=== PATIENT | female | born 1935 | race Caucasian/White ===

== ENCOUNTER 2021-08-16 10:33 | Outpatient (CLI) | payer MEDICARE, MEDICAID, SELFPAY | END 2021-08-16 10:34 | disposition home or self-care (01) | LOC: WOUND 10:33 | PROVIDERS: PCP Family Medicine; Visit Provider Nurse Practitioner Family | DX: L89.892 Pressure ulcer of other site, stage 2 (principal); R26.9 Unspecified abnormalities of gait and mobility; F01.51 Vascular dementia, unspecified severity, with behavioral disturbance | CPT/HCPCS: 97597 ==

== ENCOUNTER 2021-08-30 10:01 | Outpatient (CLI) | payer MEDICARE, MEDICAID, SELFPAY | END 2021-08-30 10:02 | disposition home or self-care (01) | LOC: WOUND 10:01 | PROVIDERS: PCP Family Medicine; Visit Provider Nurse Practitioner Family | DX: L89.894 Pressure ulcer of other site, stage 4 (principal); R26.9 Unspecified abnormalities of gait and mobility; F01.51 Vascular dementia, unspecified severity, with behavioral disturbance | CPT/HCPCS: 97597 ==

== ENCOUNTER 2021-09-06 10:46 | Outpatient (CLI) | payer MEDICARE, MEDICAID, SELFPAY | END 2021-09-06 10:47 | disposition home or self-care (01) | LOC: WOUND 10:46 | PROVIDERS: PCP Family Medicine; Visit Provider Nurse Practitioner Family | DX: L89.894 Pressure ulcer of other site, stage 4 (principal); R26.9 Unspecified abnormalities of gait and mobility | CPT/HCPCS: 99212 ==

== ENCOUNTER 2021-10-05 17:37 | Outpatient (REF) | payer MEDICARE, MEDICAID, SELFPAY ==
[2021-10-05 19:21] LABS: Appearance Urine Clear (Clear); Bilirubin Urine Negative (Negative); Blood Urine Negative (Negative); Color Urine Yellow (Yellow); Glucose Urine Negative (Negative); Ketones Urine Negative (Negative); Leukocyte Esterase Urine Trace (Negative); Nitrite Urine Positive (Negative); Protein Urine Negative (Negative); Specific Gravity Urine 1.025 (1.000-1.030); Urobilinogen Urine 0.2 (0.2-1.0)
[2021-10-05 19:37] LABS: RBC Urine 0-2 (0-2)
[2021-10-05 19:38] LABS: Bacteria Urine Many; Squamous Epithelial Cell Urine Few (None-Few)
== END 2021-10-05 17:38 | disposition home or self-care (01) ==
LOC: NPINS 17:37
PROVIDERS: PCP Family Medicine; Visit Provider Family Medicine
DX: R32 Unspecified urinary incontinence (principal)
CPT/HCPCS: 81001; 87086; 87186

== ENCOUNTER 2021-10-24 17:57 | Outpatient (CLI) | payer MEDICARE, MEDICAID, SELFPAY ==
--- OUTSIDE RECORDS SUMMARY | 2021-11-06 07:05 | XMS_ITS | Clinical Summary ---
:1935 Author Organization [facility] [place] [address] Care Team Providers Name Role Phone Lucille Toney MD Primary Care Provider [phone] Allergies Active Allergy Reactions Severity Noted Date Comments Erythromycin Hives 05/19/2010 Penicillins Hives 05/19/2010 Oxycodone-Acetaminophen 05/19/2010 Dizz y and disoriented Medications Medication Sig Dispensed Refills Start Date End Date Status simvastatin (ZOCOR) 20 Take 1 tablet by 0 01/04/2010 Active mg tablet mouth at bedtime. meloxicam 15 mg tablet Take 1 tablet by 0 05/19/2010 Active mouth once daily. multivitamin (MVI) Take 1 tablet by 0 10/26/2015 Active tablet mouth once daily. donepeziL (ARICEPT) 10 TK 2 TS PO IN THE 0 0 Active mg tablet MORNING amLODIPine (NORVASC) 5 TK 1 T PO D 0 04/21/2019 Active mg tablet medication order Catheter in place 1 Device 0 12/22/2019 Active composerIndications: - please provide Urinary retention catheter care and catheter changes every 4-6 weeks until patient has increased mobility. nitrofurantoin Take 1 capsule by 30 capsule 5 02/16/2020 Active macrocrystaL mouth once daily. (MACRODANTIN) 50 mg capsuleIndications: Urinary tract infection without hematuria, site unspecified betamethasone Apply topically 1 Bottle 0 03/29/2020 Active dipropionate 0.05% to affected (DIPROSONE LOTION area(s) 2 times 0.05%) daily. lotionIndications: Subacute vaginitis Active Problems Problem Noted Date HTN (hypertension) 02/21/2012 Senile osteoporosis 02/21/2012 Hyperlipidemia 02/21/2012 DJD (degenerative joint disease) 02/21/2012 Resolved Problems Problem Noted Date Resolved Date Tibia/fibula fracture 02/21/2012 10/26/2015 Overview: s/p ORIF 02/05/12 Immunizations Name Administration Dates Next Due Influenza, High-dose Inactivated 01/17/2015 Pneumococcal Poly,23-Valent (Pneumovax) 07/14/2009 Pneumococcal conj 13-Valent (Prevnar 13) 12/18/2013 Tdap 01/17/2013 Zoster (Zostavax-ZVL, live) 05/10/2015 Social History Tobacco Use Types Packs/Day Years Used Date Never Smoker Smokeless Tobacco: Never Used Tobacco Cessation: Counseling Given: Yes Alcohol Use Standard Drinks/Week Comments Not Currently 0 (1 standard drink = 0.6 oz pure alcoho l) rarely Sex Assigned at Date Recorded Not on file Obstetrics History Last Filed Vital Signs Vital Sign Reading Time Taken Comments Blood Pressure 111/69 03/22/2020 11:51 AM HAT CONDITIONER Pulse 77 03/22/2020 11:51 AM HAT CONDITIONER Temperature 37.1 ??C (98.8 ??F) 06/30/2018 11:30 AM CDT Respiratory Rate 16 12/22/2019 1:44 PM HAT CONDITIONER Oxygen Saturation 98% 03/22/2020 11:51 AM HAT CONDITIONER Inhaled Oxygen Concentration - - Weight 58.7 kg (129 lb 4.8 oz) 06/30/2018 11:30 AM CDT Height 162.6 cm (5' 4.02) 11/03/2015 12:59 PM CDT Body Mass Index 22.18 11/03/2015 12:59 PM CDT Plan of Treatment Health Maintenance Due Date Last Done Comments COVID-19 vaccine series (#1) 02/24/1936 DEXA/DXA scan for age 65+ 08/23/2000 Medicare Wellness for age 65+ 08/23/2000 Zoster (shingles) series for age 50+ (2 of 07/05/201505/09 3) BMI (ht and wt on same day) for age 18+ 11/02/2016 11/03/19 16, 11/02/2015 Depression screening for age 12+ 11/02/2016 11/03/2015 Influenza for age 65+ 10/18/2021 01/17/2015 Tetanus booster 01/17/2023 01/17/2013 Tdap Completed 01/17/2013 Pneumococcal series for age 65+ Completed 12/18/2013, 06/18 Results Not on filefrom Last 3 Months Insurance Payer Benefit Plan / Subscriber ID Effective Dates Phone Addre ss Type Group MEDICARE - PB MEDICARE PB [id number] 2006-Present ATT N: CLAIMS USE ONLY ONLY [address] [place] [address] Care Teams Worsted Winder Relationship Specialty Start Date End Date Lucille Toney MD PCP - General Family Practice 12/22/191999 [place] [address]
== END 2021-10-24 17:58 | disposition home or self-care (01) ==
PROVIDERS: PCP Family Medicine; Visit Provider Family Medicine
DX: F03.90 Unspecified dementia, unspecified severity, without behavioral disturbance, psychotic disturbance, mood disturbance, and anxiety (principal)
CPT/HCPCS: A0998

== ENCOUNTER 2021-12-02 17:13 | Outpatient (CLI) | payer MEDICARE, MEDICAID, SELFPAY ==
--- OUTSIDE RECORDS SUMMARY | 2021-12-07 10:11 | XMS_ITS | Clinical Summary ---
:1935 Author Organization [facility] [place] [address] Care Team Providers Name Role Phone Lucille Toney MD Primary Care Provider Allergies Active Allergy Reactions Severity Noted Date [...] Comments Blood Pressure 111/69 03/22/2020 11:51 AM COIL WINDER Pulse 77 03/22/2020 11:51 AM COIL WINDER Temperature 37.1 ??C (98.8 ??F) 06/30/2018 11:30 AM CDT Respiratory Rate 16 12/22/2019 1:44 PM COIL WINDER Oxygen Saturation 98% 03/22/2020 11:51 AM COIL WINDER Inhaled Oxygen Concentration - - Weight 58.7 [...] Type Group MEDICARE - PB MEDICARE PB [id number] 2006-Present ATT N: CLAIMS USE ONLY ONLY [address] [place] [address] Care Teams Seafood Preparer Relationship Specialty Start Date End Date Lucille Toney MD PCP - General Family Practice 12/22/191999 [place] [address]
== END 2021-12-02 17:14 | disposition home or self-care (01) ==
LOC: NFLDREF 12-07 10:10
PROVIDERS: PCP Family Medicine; Visit Provider Family Medicine
DX: H10.9 Unspecified conjunctivitis (principal); B96.89 Other specified bacterial agents as the cause of diseases classified elsewhere
CPT/HCPCS: 81003; 81015; 87086; 87186

== ENCOUNTER 2021-12-15 11:51 | Outpatient (CLI) | payer MEDICARE, MEDICAID, SELFPAY ==
--- OUTSIDE RECORDS SUMMARY | 2021-12-15 11:54 | XMS_ITS | Clinical Summary ---
:1935 Author Organization [facility] [place] [address] Care Team Providers Name Role Phone Lucille Toney MD Primary Care Provider [phone] Allergies Active Allergy Reactions Severity Noted [...] Comments Blood Pressure 111/69 03/22/2020 11:51 AM DIET COUNSELOR Pulse 77 03/22/2020 11:51 AM DIET COUNSELOR Temperature 37.1 ??C (98.8 ??F) 06/30/2018 11:30 AM CDT Respiratory Rate 16 12/22/2019 1:44 PM DIET COUNSELOR Oxygen Saturation 98% 03/22/2020 11:51 AM DIET COUNSELOR Inhaled Oxygen Concentration - - Weight 58.7 [...] Type Group MEDICARE - PB MEDICARE PB [id number] 2006-Present ATT N: CLAIMS USE ONLY ONLY [address] [place] [address] Care Teams Pediatric Nephrologist Relationship Specialty Start Date End Date Lucille Toney MD PCP - General Family Practice 12/22/191999 [place] [address]
[2021-12-15 13:05] LABS: Appearance Urine Clear (Clear); Bilirubin Urine Negative (Negative); Color Urine Yellow (Yellow); Glucose Urine Negative (Negative)
[2021-12-15 13:06] LABS: Bacteria Urine Few; Blood Urine Negative (Negative); Ketones Urine Negative (Negative); Leukocyte Esterase Urine Negative (Negative); Nitrite Urine Negative (Negative); Protein Urine Negative (Negative); RBC Urine 0-2 (0-2); Specific Gravity Urine 1.015 (1.000-1.030); Squamous Epithelial Cell Urine Few (None-Few); Urobilinogen Urine 0.2 (0.2-1.0); WBC Urine 0-2 (0-5)
== END 2021-12-15 11:52 | disposition home or self-care (01) ==
PROVIDERS: PCP Family Medicine; Visit Provider Family Medicine
DX: R35.0 Frequency of micturition (principal)
CPT/HCPCS: 81001; 81003; 87086

== ENCOUNTER 2022-05-16 14:31 | Outpatient (CLI) | payer MEDICARE, MEDICAID, SELFPAY | END 2022-05-16 14:32 | disposition home or self-care (01) | LOC: NFLDREF 14:33 | PROVIDERS: PCP Family Medicine; Visit Provider Family Medicine | DX: Z01.818 Encounter for other preprocedural examination (principal); I10 Essential (primary) hypertension | CPT/HCPCS: 80048 ==

== ENCOUNTER 2022-10-29 10:28 | Outpatient (CLI) | payer MEDICARE, MEDICAID, SELFPAY ==
[2022-10-30 12:18] LABS: Appearance Urine Cloudy (Clear); Bilirubin Urine Negative (Negative); Blood Urine Negative (Negative); Color Urine Yellow (Yellow); Glucose Urine Negative (Negative); Ketones Urine Negative (Negative); Leukocyte Esterase Urine Negative (Negative); Nitrite Urine Positive (Negative); Protein Urine Negative (Negative); Specific Gravity Urine 1.025 (1.000-1.030); Urobilinogen Urine 0.2 (0.2-1.0); pH Urine 5.5 (5.0-8.5)
[2022-10-30 12:26] LABS: Bacteria Urine Many; RBC Urine 0-2 (0-2)
== END 2022-10-29 10:29 | disposition home or self-care (01) ==
LOC: NFLDREF 10:30
PROVIDERS: PCP Family Medicine; Visit Provider Family Medicine
DX: N39.0 Urinary tract infection, site not specified (principal)
CPT/HCPCS: 81001; 87086; 87186

== ENCOUNTER 2022-11-20 11:30 | Outpatient (CLI) | payer MEDICARE, MEDICAID, SELFPAY | END 2022-11-20 11:31 | disposition home or self-care (01) | PROVIDERS: PCP Family Medicine; Visit Provider Family Medicine | DX: R74.8 Abnormal levels of other serum enzymes (principal); R23.3 Spontaneous ecchymoses; M81.0 Age-related osteoporosis without current pathological fracture; Z13.21 Encounter for screening for nutritional disorder; R54 Age-related physical debility; E78.5 Hyperlipidemia, unspecified; G30.9 Alzheimer's disease, unspecified; I10 Essential (primary) hypertension | CPT/HCPCS: 80053; 82306 ==

== ENCOUNTER 2022-12-18 13:13 | Outpatient (REF) | payer MEDICARE, MEDICAID, SELFPAY ==
[2022-12-18 13:33] LABS: Appearance Urine Cloudy (Clear); Bilirubin Urine Negative (Negative); Blood Urine Negative (Negative); Color Urine Yellow (Yellow); Glucose Urine Negative (Negative); Ketones Urine Trace (Negative); Leukocyte Esterase Urine Trace (Negative); Nitrite Urine Negative (Negative); Protein Urine Negative (Negative); Specific Gravity Urine 1.025 (1.000-1.030); Urobilinogen Urine 0.2 (0.2-1.0); pH Urine 5.5 (5.0-8.5)
[2022-12-18 13:59] LABS: Bacteria Urine Many; RBC Urine 0-2 (0-2); Squamous Epithelial Cell Urine Moderate (None-Few); WBC Urine 0-2 (0-5)
== END 2022-12-18 13:14 | disposition home or self-care (01) ==
LOC: NPINS 13:13
PROVIDERS: PCP Family Medicine; Visit Provider Family Medicine
DX: N39.0 Urinary tract infection, site not specified (principal)
CPT/HCPCS: 81001; 87086

== ENCOUNTER 2023-01-18 12:56 | Emergency (ER) | payer MEDICARE, MEDICAID, SELFPAY ==
[2023-01-18 13:00] VITALS: BP 183/69; PULSE 80; RESP 18; TEMP 36.4; O2SAT 97
--- NOTE | 2023-01-18 13:09 | CRLHL7_ITS ---
For Patients: As a result of the Century Cures Act, medical imaging exams and procedure reports are released immediately into your electronic medical record. You may view this report before your referring provider. If you have questions, please contact your health care provider. INDICATION: Weakness TECHNIQUE: Single portable sitting frontal view COMPARISON: 04/29/2020 FINDINGS: The cardiomediastinal contours appear unchanged. No new focal or diffuse pulmonary opacities. No definite pneumothorax or pleural effusion. The bones appear stable. IMPRESSION: No acute pulmonary process. Dictated by Gianfranco Mensah MD @ 01/18/2023 2:16:20 PM (Electronically Signed)
--- NOTE | 2023-01-18 13:10 | CRLHL7_ITS ---
For Patients: As a result of the 21st Century Cures Act, medical imaging exams and procedure reports are released immediately into your electronic medical record. You may view this report before your referring provider. If you have questions, please contact your health care provider. INDICATION: Abdomen pain, nausea. COMPARISON: 01/31/2013. TECHNIQUE: Noncontrast CT of the abdomen and pelvis. FINDINGS: Evaluation limited by placement of the patient`s arms across the area of interest. The has had a previous intramedullary glen and cortical screw fixation in the right hip, which has been removed. There are several new stabilizing nails across the hip for a previous fracture. There is partial collapse of the head, perhaps related to AVN or degeneration. These changes are new from the remote prior when the femoral head was intact. Multilevel degenerative changes of the spine. Severe compression deformity of the L2 vertebral body, also new from the remote prior. No definitive acute retropulsion. There is grade 1-2 anterolisthesis of L4 on L5 seen along with a left-sided pars defects. Leftward scoliosis. Right-sided sacral insufficiency fracture indicated by subtle sclerosis vertically seen within the right indigo sacrum (see image 62, series 4)for example. This is supported by a mild depression seen on the axial views, image 69, series 2, confirming the presence of a sacral insufficiency fracture. Esophageal distention with a large amount of esophageal debris seen in the visualized portions of the lung bases. This is similar to started. No new focal or diffuse pulmonary opacities. The lung bases appear clear. The hardware is seen in the bilateral humerus incidentally noted. Atherosclerotic changes. Colonic diverticulosis. No free intraperitoneal air or fluid. No renal or ureteral calculi. No hydronephrosis. Adrenal glands appear unremarkable. No splenomegaly or splenic fluid. Noncirrhotic liver morphology. No perihepatic fluid. No gallbladder distention. No peripancreatic fluid or abscess. Urinary bladder appears unremarkable. No obvious suspicious adnexal mass. Hysterectomy change. Several small calcifications seen along the posterior urinary bladder likely small ureteral calculi. IMPRESSION: 1. Insufficiency fracture right hemisacrum. 2. Chronic fracture right femoral neck, with previous intramedullary glen and screw fixation, now with several femoral neck screws. 3. Severe compression deformity of the L2 vertebral body. 4. Grade 1-2 anterolisthesis of L4 on L5 with a unilateral pars defect on the left. 5. Colonic diverticulosis. 6. Urinary bladder calculi. 7. Large amount of debris within the visualized portions of the distal esophagus. Please note that all CT scans at this facility use dose modulation, iterative reconstruction, and/or weight-based dosing when appropriate to reduce radiation dose to as low as reasonably achievable. Dictated by Gianfranco Mensah MD @ 01/18/2023 3:03:10 PM (Electronically Signed)
--- NOTE | 2023-01-18 13:13 | ED_ITS ---
HPI - General Adult General Time Seen by Provider: 13:13 Date Seen: 01/18/23 Chief complaint: Unspecified Complaint, Adult Stated complaint: possible UTI, not eating Time Seen by Provider: 01/18/23 13:01 Source: family Mode of arrival: wheelchair Limitations: physical limitation History of Present Illness HPI narrative: Patient is an 87 year white female with significant dementia who lives with her adult son. She has seen Dr. Conrad in [facility] for primary care. He reports she has had spitting up for the last several months. She does have a known ?no heroic effort and of ?resuscitation order. The brother that is here reports that the other brother is the power of deputy prosecuting attorney. He contacted him and reported no heroic efforts as mention. The patient has had frequent UTIs, she has been treated with antibiotics for that. She will eat and then vomits some frothy says saliva type material but she does not have vomiting of food. There has been no history of aspiration. Presents to the ED for evaluation. Related Data Home Medications Medication Instructions Recorded Confirmed acetaminophen 650 mg 650 mg PO Q8H PRN 11/29/21 11/20/22 tablet,extended release multivitamin 1 tab PO QDAY 11/29/21 11/20/22 simvastatin 20 mg tablet 20 mg PO .Bedtime 11/29/21 11/20/22 cholecalciferol (vitamin D3) 25 25 mcg PO QDAY 04/10/22 11/20/22 mcg (1,000 unit) capsule (Vitamin D3) Previous Rx's Medication Instructions Recorded amlodipine 5 mg tablet 5 mg PO DAILY #90 tabs 10/01/22 donepezil 10 mg tablet 20 mg (2 x 10 mg) PO .Am #180 tabs 10/01/22 meloxicam 15 mg tablet 15 mg PO DAILY #90 tabs 12/18/22 ciprofloxacin 250 mg/5 mL oral 250 mg (5 mL) PO BID 5 days #50 mL 01/18/23 suspension (Cipro) Allergies Allergy/AdvReac Type Severity Reaction Status Date / Time azithromycin Allergy Unknown Verified 11/20/22 11:08 Cephalosporins Allergy Unknown Verified 11/20/22 11:08 lisinopril Allergy Unknown Verified 11/20/22 11:08 oxycodone Allergy Unknown Verified 11/20/22 11:08 Penicillins Allergy Unknown Verified 11/20/22 11:08 environmental Allergy Unknown Uncoded 11/20/22 11:08 Review of Systems Status of ROS: Reports: 6 or more systems reviewed and unremarkable except as noted in History and below Narrative: Per son [facility]SH [facility] Medical History History of cough custodial current use of non-steroidal anti-inflammatories (NSAID) ?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 of non-steroidal anti-inflammatories (NSAID) (ICD-10) Primary osteoarthritis involving multiple joints ?M15.9 - Polyosteoarthritis, unspecified (ICD-10) Hyperlipidemia ?E78.5 - Hyperlipidemia, unspecified (ICD-10) History of diverticulitis (01/31/13) ?Z87.19 - Personal history of other diseases of the digestive system (ICD-10) Frailty syndrome in geriatric patient ?R54 - Age-related physical debility (ICD-10) Fracture of acromion of scapula ?S42.123A - Displaced fracture of acromial process, unspecified shoulder, initial encounter for closed fracture (ICD-10) 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) ?G30.9 - Alzheimer's disease, unspecified (ICD-10) ?F02.80 - Dementia in other diseases classified elsewhere, unspecified severity, without behavioral disturbance, psychotic disturbance, mood disturbance, and anxiety (ICD-10) Benign essential hypertension ?I10 - Essential (primary) hypertension (ICD-10) Surgical History History of bilateral cataract extraction (~03/2021) ?Z98.41 - Cataract extraction status, right eye (ICD-10) ?Z98.42 - Cataract extraction status, left eye (ICD-10) History of open reduction and internal fixation (ORIF) procedure (~2020) ?Z98.890 - Other specified postprocedural states (ICD-10) History of reverse total replacement of right shoulder joint (06/16/13) ?Z98.890 - Other specified postprocedural states (ICD-10) History of total left knee replacement (Unknown) ?Z96.652 - Presence of left artificial knee joint (ICD-10) Status post total right knee replacement (~2018) ?Z96.651 - Presence of right artificial knee joint (ICD-10) History of right knee surgery ?Z98.890 - Other specified postprocedural states (ICD-10) History of open reduction and internal fixation (ORIF) procedure (11/2019) ?Z98.890 - Other specified postprocedural states (ICD-10) History of open reduction and internal fixation (ORIF) procedure (2011) ?Z98.890 - Other specified postprocedural states (ICD-10) History of hysterectomy (1973) ?Z90.710 - Acquired absence of both cervix and uterus (ICD-10) History of bladder repair surgery ?Z98.890 - Other specified postprocedural states (ICD-10) History of appendectomy (1979) ?Z90.49 - Acquired absence of other specified parts of digestive tract (ICD- 10) Social History Narrative: , lives with poodle dog, 3 adult children, nonsmoker, social drinker 3-4 per week Smoking Status: Never smoker Exam Narrative: Exam Narrative: Objective: Vital signs show elevated blood pressure, no fever, O2 sat 97% on room air Patient appears comfortable, noncyanotic, does open mouth to command, does open eyes to command. Has not been verbal since she has been here. HEENT is unremarkable pupils aggression light external ocular movements appear intact no facial asymmetry noted Mouth appears clear and throat clear Neck is supple Chest clear Heart rhythm regular 2/6 systolic murmur occasional ectopic beat noted Abdomen benign soft nontender Extremities are no edema neurologic nonfocal Good peripheral perfusion noted Const: Vital Signs, click to edit/add: Vital Signs - 24 hr 01/18/23 13:00 Temperature 97.5 F L Pulse Rate [Right Pulse Oximeter] 80 Respiratory Rate 18 Blood Pressure [Ri ght Upper Arm] 183/69 H Pulse Oximetry 97 Oxygen Delivery Me thod Room Air Course Vital Signs Vital signs: Initial Vital Signs Temperature 97.5 F L 01/18/23 13:00 Temperature Source Temporal Artery Scan 01/18/23 13:00 Pulse Rate 80 01/18/23 13:00 Respiratory Rate 18 01/18/23 13:00 Blood Pressure 183/69 H 01/18/23 13:00 Blood Pressure Mean 107 H 01/18/23 13:00 Blood Pressure Position Sitting 01/18/23 13:00 Pulse Oximetry 97 01/18/23 13:00 Oxygen Delivery Method Room Air 01/18/23 13:00 Vital Signs Temperature 97.5 F L 01/18/23 13:00 Pulse Rate 80 01/18/23 13:00 Respiratory Rate 18 01/18/23 13:00 Blood Pressure 183/69 H 01/18/23 13:00 Pulse Oximetry 97 01/18/23 13:00 Oxygen Delivery Method Room Air 01/18/23 13:00 Temperature 97.5 F L 01/18/23 13:00 Pulse Rate 80 01/18/23 13:00 Respiratory Rate 18 01/18/23 13:00 Blood Pressure 183/69 H 01/18/23 13:00 Pulse Oximetry 97 01/18/23 13:00 Oxygen Delivery Method Room Air 01/18/23 13:00 Medications Administered Medications: Discontinued Medications Generic Name Dose Route Start Last Admin Trade Name Freq PRN Reason Stop Dose Admin Ciprofloxacin 250 mg 01/18/23 14:45 01/18/23 15:11 Ciprofloxacin 250 Mg Tablet PO 01/18/23 14:46 Not Given ONCE ONE Sodium Chloride 500 mls @ 500 mls/hr 01/18/23 13:05 01/18/23 15:10 0.9 % Sodium Chloride 500 Ml IV 01/18/23 14:04 Infused .Q1H ONE Infusion Ciprofloxacin 400 mg in 200 mls @ 200 mls/hr 01/18/23 14:49 01/18/23 15:58 Ciprofloxacin IVPB 01/18/23 15:48 Infused ONCE ONE Infusion Medical Decision Making [facility] Narrative Medical decision making narrative: 87-year-old white female with dementia and some type of reflux, she has had frequent spitting up her last her son reports several months. Seems to be getting a bit worse. She does have a no aerobic effort recess station status, when asked about DNR DNI the son could not specify that. At this point I think the patient better for front benefit from some IV fluid, laboratory analysis, will get a chest x-ray as well as a CT scan without contrast of her abdomen pelvis make sure she has no obstruction. Will get a urinalysis. Disposition pending findings above. Addendum 3:20 p.m. patient does have a sacral insufficiency fracture, new L2 compression fracture, and some back to her bacteriuria. She is given IV Cipro, she also has esophageal debris and I think this would guess she has some type of stricture in that she is spitting up, endoscopy might be reasonable to consider. Discussed with the son who is here who wanted to wait for the power of deputy prosecuting attorney brother to arrive. Options would include hospitalization, endoscopy, nurse fci placement, or consideration of even a hospice up protocol.. Addendum 4:27 p.m. patient has an L2 compression fracture age indeterminate, has a right indigo pelvic insufficiency fracture. She is nonweightbearing presently she has had multiple surgeries on her hip in [place]. Her last comparison CT of her back was in 2012. She does have esophageal material in her distal esophagus may need dilatation may need this assessed, and discussing with her [id number] son and other son, was agreed that they would not request fci, did not want admission and would treat the esophageal issue with endoscopy which I think could be appropriate. Will set up to see our endoscopy this next week. Would do Cipro liquid 250 b.i.d. x5 days for potential UTI, the patient also would have a light diet. Always risks of aspiration and there is also risk of dehydration but at this point she has not really coughed up any food or material, but does cough up her saliva and vomits saliva. I think endoscopy would be a reasonable course and they wished to proceed with that on order will be placed and then we will get back to them next week regarding treatment time. Return sooner problems or concerns. Again family declined any fci hospitalization placement at this time and requested the endoscopy assessment. Lab Data Labs: Lab Results 01/18/23 01/18/23 01/18/23 Range/Units 12:15 13:12 13:21 WBC 11.97 H (4.50-11.00) K/uL RBC 5.92 H (4.00-5.20) m/uL Hgb 17.0 H (12.0-16.0) gm/dL Hct 52.3 H (33.0-51.0) % MCV 88 (80-100) fL MCH 29 (26-34) pg MCHC 33 (32-36) gm/dL RDW Coeff of Cinda 14.6 (11.5-15.5) % Plt Count 302 (140-440) K/uL Neut % (Auto) 81.0 H (42.0-72.0) % Lymph % (Auto) 12.8 L (20-44) % [place] % (Auto) 5.2 (0.0-11.0) % Eos % (Auto) 0.5 (0.0-7.0) % Baso % (Auto) 0.3 (0.0-3.0) % Neut # (Auto) 9.70 H (1.7-7.0) K/uL Lymph # (Auto) 1.50 (0.90-2.90) K/uL [place] # (Auto) 0.60 (0.00-0.90) K/UL Eos # (Auto) 0.10 (0.00-0.50) K/uL Baso # (Auto) 0.00 (0.00-0.30) K/uL Abs Immat Gran (auto) 0.00 (0.00-0.30) K/uL Imm/Tot Granulo (auto) 0.2 % Sodium 142 (135-149) mmol/L Potassium 4.4 (3.6-5.1) mmol/L Chloride 108 (96-114) mmol/L Carbon Dioxide 23 (20-32) mmol/L Anion Gap 11 (7-15) mEq/L BUN 31 H (7-30) mg/dL Creatinine 0.6 (0.5-1.5) mg/dL Estimated GFR 87 ml/min Glucose 135 H (60-115) mg/dL Calcium 9.6 (8.4-10.6) mg/dL Total Bilirubin 1.2 (0.1-1.5) mg/dL Direct Bilirubin 0.4 (0.0-0.5) mg/dL AST 30 (12-35) U/L ALT 23 (4-35) U/L Alkaline Phosphatase 173 H (40-150) U/L C-Reactive Protein 1.0 (0.5-1.0) mg/dL Total Protein 8.3 (6.0-8.3) g/dL Albumin 4.8 (3.3-5.0) g/dL Amylase 121 H (18-89) U/L Urine Color Yellow (Yellow) Urine Appearance Cloudy A (Clear) Urine pH 5.5 (5.0-8.5) Ur Specific [place] >= 1.030 (1.000-1.030) Urine Protein Negative (Negative) Urine Glucose (UA) Negative (Negative) Urine Ketones 1+ A (Negative) Urine Blood Negative (Negative) Urine Nitrite Negative (Negative) Urine Bilirubin 1+ A (Negative) Urine Urobilinogen 0.2 (0.2-1.0) Ur Leukocyte Esterase Negative (Negative) Urine RBC 0-2 (0-2) Urine WBC 2-5 (0-5) Ur Squamous Epith Cells Few (None-Few) Urine Bacteria Few A (None) SARS-CoV-2 (PCR) Negative SARS-CoV-2 (Negative) Influenza Type A (PCR) Negative PCR FLU A (Negative) Influenza Type B (PCR) Negative PCR FLU B (Negative) RSV (PCR) Negative PCR RSV (Negative) Discharge Plan Discharge Clinical Impression: Dementia due to Alzheimer's disease, Vomiting, Urinary tract infection Patient Disposition: Home w/ Parent or Adult Condition: Stable Additional Instructions: Light diet clear liquid diet, may try soups, Jell-O, soft food. Would give you Cipro for and potential bladder infection. Staff will get back to about a endoscopy next week. Return as needed sooner. Activity Level: Light activity Discharge Diet: Full Liquid Prescriptions: New ciprofloxacin [Cipro] 250 mg/5 mL suspension,microcapsule recon 250 mg PO BID 5 Days Qty: 50 0RF No Action cholecalciferol (vitamin D3) [Vitamin D3] 25 mcg (1,000 unit) capsule 25 mcg PO QDAY simvastatin 20 mg tablet 20 mg PO .Bedtime acetaminophen 650 mg tablet extended release 650 mg PO Q8H PRN multivitamin Tablet 1 tab PO QDAY donepezil 10 mg tablet 20 mg PO .Am Qty: 180 0RF amlodipine 5 mg tablet 5 mg PO DAILY Qty: 90 0RF meloxicam 15 mg tablet 15 mg PO DAILY Qty: 90 3RF Follow Up/Referrals: Lucille Toney MD [Primary Care Provider] - Stand Alone [facility]: [facility] Inst[facility]
[2023-01-18 13:15] LABS: Appearance Urine Cloudy (Clear); Bilirubin Urine 1+ (Negative); Blood Urine Negative (Negative); Color Urine Yellow (Yellow); Glucose Urine Negative (Negative); Ketones Urine 1+ (Negative); Leukocyte Esterase Urine Negative (Negative); Nitrite Urine Negative (Negative); Protein Urine Negative (Negative); Specific Gravity Urine >= 1.030 (1.000-1.030); Urobilinogen Urine 0.2 (0.2-1.0); pH Urine 5.5 (5.0-8.5)
[2023-01-18 13:30] LABS: Basophils Percent Auto 0.3 % (0.0-3.0); Eosinophils Percent Auto 0.5 % (0.0-7.0); Hematocrit 52.3 % (33.0-51.0); Immature Granulocytes Pct Auto 0.2 %; Lymphocytes Percent Auto 12.8 % (20-44); Mean Corpuscular HGB Conc 33 gm/dL (32-36); Mean Corpuscular Hemoglobin 29 pg (26-34); Mean Corpuscular Volume 88 fL (80-100); Monocytes Percent Auto 5.2 % (0.0-11.0); Platelet Count* 302 K/uL (140-440); RDW Coefficient of Variation % 14.6 % (11.5-15.5); Red Blood Count 5.92 m/uL (4.00-5.20); White Blood Count* 11.97 K/uL (4.50-11.00)
[2023-01-18 13:38] LABS: Slide Review Reflex No
[2023-01-18 13:39] LABS: RBC Urine 0-2 (0-2)
--- OUTSIDE RECORDS SUMMARY | 2023-01-18 13:39 | XMS_ITS | Continuity of Care Document ---
Author Name Unknown Organization [facility] Address [address] [address] [place] [address] Phone Care Team Providers Care Storm Sash Maker Name Role Phone Link Wild MCCORMACK Unavailable Unavailable Allergies, Adverse Reactions, Alerts Substance Reaction Status Criticality erythromycin base Hives Active No Informa tion ethyl alcohol Hives Active No Information Penicillins Hives Active No Information Medications Medication Instructions Dosage Effective Dates (start - stop) Status Comments MiralaxBisacodylMagCit Colon Prep Use as directed - Active simvastatin 40 mg Tab take 1 tablet (40MG) by oral route every day in the evening 40 MG - Active meloxicam 15 mg Tab take 1 tablet (15MG) by oral route every day 15 MG - Active amlodipine 5 mg Tab take 1 tablet (5MG) by oral route every day 5 MG - Active Celebrex 200 mg Cap twice a day - Acti ve Fosamax 70 mg Tab Take 1 tablet by mouth weekly - Active Lipitor 10 mg Tab Take 1 tablet by mouth daily - Active multivitamin Tab Take one tablet by mouth daily - Active Calcium 600 600 mg (1,500 mg ) Tab Take two tablets by mouth daily - Active whddbnmqzrf-psgjbxqra-mfx C-Mn 750 mg-600 mg-55 mg-5 mg Tab Take two tablets by mouth daily - Active Procedures Procedure Date Colonoscopy Flex; W/bx 1/mx Level Iv-surg Path Gross/micro 11 Colonoscopy Flex; W/bx 1/mx Advance Directives Directive Yes / No Effective Date File Name No Information Encounters Encounter Description Practice Location Reason(s) For Visit Diagnoses Date Provider Providers Copied on Encounter [facility], [address] [address], [place], [id number], [place] tel:[phone] [facility] No Information 6 Tomas Rome. [address] [facility], [facility] [address], [facility] [place], [id number] , [place]. tel: [phone] Referring Provider: Referral Self, USE FOR SELF REFERRALS. [facility], [address] [address], [place], [id number], [place] tel:[phone] [facility] Diverticulosis Of ColonBenign Neoplasm ColonDiarrheaDive rticulosis Of Colon 1 Brando Jones. [address] [facility] [address], [facility] [address], [facility] [place], [place], [id number] , [place]. tel: [phone] [facility], [address] [address], [place], [id number], [place] tel:[phone] [facility] Colon Cancer ScreeningDivertic ulosis Of Colon 7 Skylar Baker. [address] [address], [place] [address], [facility] [place], [place], [id number] , [place]. tel: [phone] Family History Family Member Type Diagnosis Age At Onset No Information Payers Payer name Insurance type Covered constitution party ID Authoriza tion(s) No Information Social History Type Description Quantity Date Captured Comments Sex Female Smoking Status No Information Chief Complaint And Reason For Visit No Information Reason For Referral Reason For Referral No Information History Of Present Illness Encounter Date Complaint History Of Prese nt Illness No Information Functional Status Date Functional Assessmen t No Information Instructions Date Instruction Additional Infor mation No Information Assessments Type Assessment Date No Information Patient Care Teams Name Effective Dates (start - stop) Status Members No Information
[2023-01-18 13:40] LABS: Bacteria Urine Few; Squamous Epithelial Cell Urine Few (None-Few)
[2023-01-18 13:45] LABS: Albumin* 4.8 g/dL (3.3-5.0); Chloride* 108 mmol/L (96-114)
[2023-01-18 13:46] LABS: Potassium* 4.4 mmol/L (3.6-5.1); Sodium* 142 mmol/L (135-149)
[2023-01-18 13:48] LABS: Amylase* 121 U/L (18-89); Creatinine* 0.6 mg/dL (0.5-1.5); Estimated Glomerular Filt Rate 87 ml/min
[2023-01-18 13:49] LABS: Alanine Aminotransferase* 23 U/L (4-35); Alkaline Phosphatase* 173 U/L (40-150); Anion Gap 11 mEq/L (7-15); Aspartate Amino Transferase* 30 U/L (12-35); Bilirubin Direct* 0.4 mg/dL (0.0-0.5); Bilirubin Total* 1.2 mg/dL (0.1-1.5); Blood Urea Nitrogen* 31 mg/dL (7-30); Calcium* 9.6 mg/dL (8.4-10.6); Carbon Dioxide* 23 mmol/L (20-32); Glucose* 135 mg/dL (60-115); Total Protein* 8.3 g/dL (6.0-8.3)
[2023-01-18 14:06] LABS: PCR FLU A Negative PCR FLU A (Negative); PCR FLU B Negative PCR FLU B (Negative); PCR RSV Negative PCR RSV (Negative)
[2023-01-18 14:10] LABS: SARS PCR* Negative SARS-CoV-2 (Negative)
[2023-01-18] MEDS: 0.9 % SODIUM CHLORIDE 500 ML 500 ML IV (14:26)
[2023-01-18] MEDS: CIPROFLOXACIN 400 MG/200 ML PIGGYBACK 200 MG IVPB (15:01)
== END 2023-01-18 16:35 | disposition home or self-care (01) ==
PROVIDERS: Emergency Provider Family Medicine; PCP Family Medicine
DX: N39.0 Urinary tract infection, site not specified (principal); R11.10 Vomiting, unspecified; G30.9 Alzheimer's disease, unspecified; F02.80 Dementia in other diseases classified elsewhere, unspecified severity, without behavioral disturbance, psychotic disturbance, mood disturbance, and anxiety
CPT/HCPCS: 36415; 71045; 74176; 80048; 80076; 81001; 82150; 85025; 86140; 87086; 87631; 96365; 99284; 99285; J0744; J7120

== ENCOUNTER 2023-01-21 11:24 | Inpatient (IN) | payer MEDICARE, MEDICAID, SELFPAY ==
[2023-01-21] VITALS (26 sets, daily range): BP systolic 101–148; BP diastolic 70–125; PULSE 88–147; RESP 18; TEMP 37.1; O2SAT 93–96; BMI 17.2
--- NOTE | 2023-01-21 17:28 | ED_ITS ---
HPI - General Adult General Date Seen: 01/21/23 Chief complaint: Arrhythmia/Palpitations Stated complaint: Irregular heartbeat Time Seen by Provider: 01/21/23 16:43 Source: family, RN notes reviewed and old records reviewed Mode of arrival: wheelchair Limitations: other History of Present Illness HPI narrative: Patient is an 87-year-old woman here with her son for evaluation of irregular h eartbeat. She was here over the weekend with difficulty felt possibly related to esophageal stricture, we declined admission at that time. She lives at home with her son who is her caregiver. 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 Her son says that she has been having hard time since leaving because she is not eating anything, he has been able to get some fluids in. She is DNR and DNI, no heroic efforts, but they do seem to treat other issues as they arise, such as urinary tract infections etcetera. Home health was there today and was concerned that her heart was beating alternately fast and slow. Patient herself is not able to tell me anything about how she is feeling. Son reports no fainting. She does have a bruise on her forehead, he denies that she fell, says that that happened during a transfer. Related Data Home Medications Medication Instructions Recorded Confirmed simvastatin 20 mg tablet 20 mg PO .Bedtime 11/29/21 01/21/23 cholecalciferol (vitamin D3) 25 25 mcg PO QDAY 04/10/22 01/21/23 mcg (1,000 unit) capsule (Vitamin D3) Previous Rx's Medication Instructions Recorded amlodipine 5 mg tablet 5 mg PO DAILY #90 tabs 10/01/22 donepezil 10 mg tablet 20 mg (2 x 10 mg) PO .Am #180 tabs 10/01/22 meloxicam 15 mg tablet 15 mg PO DAILY #90 tabs 12/18/22 ciprofloxacin 250 mg/5 mL oral 250 mg (5 mL) PO BID 5 days #50 mL 01/18/23 suspension (Cipro) Allergies Allergy/AdvReac Type Severity Reaction Status Date / Time azithromycin Allergy Unknown Verified 01/21/23 11:56 Cephalosporins Allergy Unknown Verified 01/21/23 11:56 lisinopril Allergy Unknown Verified 01/21/23 11:56 oxycodone Allergy Unknown Verified 01/21/23 11:56 Penicillins Allergy Unknown Verified 01/21/23 11:56 environmental Allergy Unknown Uncoded 11/20/22 11:08 Review of Systems Status of ROS: Reports: unobtainable due to medical condition [facility] Medical History (Updated 01/21/23 @ 23:32 by Maurilio Garg MD) History of [facility] current use of non-steroidal anti-inflammatories (NSAID) ?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 non-steroidal anti-inflammatories (NSAID) (ICD-10) Primary osteoarthritis involving multiple joints ?M15.9 - Polyosteoarthritis, unspecified (ICD-10) Hyperlipidemia ?E78.5 - Hyperlipidemia, unspecified (ICD-10) History of diverticulitis (01/31/13) ?Z87.19 - Personal history of other diseases of the digestive system (ICD-10) Frailty syndrome in geriatric patient ?R54 - Age-related physical debility (ICD-10) Fracture of acromion of scapula ?S42.123A - Displaced fracture of acromial process, unspecified shoulder, initial encounter for closed fracture (ICD-10) 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) ?G30.9 - Alzheimer's disease, unspecified (ICD-10) ?F02.80 - Dementia in other diseases classified elsewhere, unspecified severity, without behavioral disturbance, psychotic disturbance, mood disturbance, and anxiety (ICD-10) Benign essential hypertension ?I10 - Essential (primary) hypertension (ICD-10) Surgical History History of bilateral cataract extraction (~03/2021) ?Z98.41 - Cataract extraction status, right eye (ICD-10) ?Z98.42 - Cataract extraction status, left eye (ICD-10) History of open reduction and internal fixation (ORIF) procedure (~2020) ?Z98.890 - Other specified postprocedural states (ICD-10) History of reverse total replacement of right shoulder joint (06/16/13) ?Z98.890 - Other specified postprocedural states (ICD-10) History of total left knee replacement (Unknown) ?Z96.652 - Presence of left artificial knee joint (ICD-10) Status post total right knee replacement (~2018) ?Z96.651 - Presence of right artificial knee joint (ICD-10) History of right knee surgery ?Z98.890 - Other specified postprocedural states (ICD-10) History of open reduction and internal fixation (ORIF) procedure (11/2019) ?Z98.890 - Other specified postprocedural states (ICD-10) History of open reduction and internal fixation (ORIF) procedure (2011) ?Z98.890 - Other specified postprocedural states (ICD-10) History of hysterectomy (1973) ?Z90.710 - Acquired absence of both cervix and uterus (ICD-10) History of bladder repair surgery ?Z98.890 - Other specified postprocedural states (ICD-10) History of appendectomy (1979) ?Z90.49 - Acquired absence of other specified parts of digestive tract (ICD- 10) Social History Narrative: , lives with poodle dog, 3 adult children, nonsmoker, social drinker 3-4 per week Smoking Status: Never smoker Do you use any of these nicotine containing products: None How often do you have a drink containing alcohol: never How often do you have six or more drinks on one occasion: Never AUDIT-C Alcohol total score: 0 Non-prescribed substance use: denies use service: No Exam Narrative: Exam Narrative: Vital signs as noted above. In general, a cachectic elderly woman. She is slumped forward, eyes are closed but she does open them to voice. Head: Normocephalic. She has a subacute appearing bruise on the left forehead. Eyes: Pupils are equal reactive. ENT: Mucous membranes are somewhat dry. Neck: Supple without lymphadenopathy. Heart: Tachycardic, mildly irregular. Lungs: Clear anteriorly. No increased work of breathing. Abdomen: Soft and nontender. Extremities: Pulses are intact, no significant lower extremity edema. Neurologic: Patient is somnolent but rousable. Does not follow commands or answer questions today. Affect: Confused. Skin: Warm and dry. Well perfused. Const: Vital Signs, click to edit/add: Vital Signs - 24 hr 01/21/23 11:48 01/21/23 17:09 01/21/23 17:46 Temperature 98.8 F Pulse Rate Pulse Rate [Pulse Oximeter] 138 H Respiratory Rate 18 Blood Pressure 127/111 H Pulse Oximetry 94 01/21/23 17:51 01/21/23 18:00 01/21/23 18:01 Temperature Pulse Rate 134 H 133 H 128 H Pulse Rate [Pulse Oximeter] Respiratory Rate Blood Pressure 147/124 H Pulse Oximetry 94 93 93 01/21/23 18:15 01/21/23 18:30 01/21/23 18:32 Temperature Pulse Rate 145 H 147 H 141 H Pulse Rate [Pulse Oximeter] Respiratory Rate Blood Pressure 138/125 H Pulse Oximetry 95 93 94 01/21/23 18:45 01/21/23 19:01 01/21/23 19:02 Temperature Pulse Rate 138 H 120 H 88 Pulse Rate [Pulse Oximeter] Respiratory Rate Blood Pressure 131/107 H Pulse Oximetry 94 93 93 01/21/23 19:15 01/21/23 19:32 01/21/23 19:52 Temperature Pulse Rate 113 H 120 H Pulse Rate [Pulse Oximeter] Respiratory Rate Blood Pressure 148/88 H Pulse Oximetry 94 96 01/21/23 20:00 01/21/23 20:01 01/21/23 20:02 Temperature Pulse Rate 112 H 103 H 101 H Pulse Rate [Pulse Oximeter] Respiratory Rate Blood Pressure 138/95 H Pulse Oximetry 95 95 94 01/21/23 20:31 01/21/23 21:01 01/21/23 21:31 Temperature Pulse Rate Pulse Rate [Pulse Oximeter] Respiratory Rate Blood Pressure 134/81 134/82 127/74 Pulse Oximetry 01/21/23 22:01 01/21/23 22:31 01/21/23 22:59 Temperature Pulse Rate Pulse Rate [Pulse Oximeter] Respiratory Rate Blood Pressure 125/95 H 101/70 116/70 Pulse Oximetry 01/21/23 23:01 01/21/23 23:31 Temperature Pulse Rate Pulse Rate [Pulse Oximeter] Respiratory Rate Blood Pressure 128/88 118/79 Pulse Oximetry Documenting provider has reviewed patient's vital signs: yes Course Course ED Course: Initially placed an IV and gave her L of fluid. She had an EKG which showed atrial fibrillation with the rapid ventricular rate, seemingly a new problem for her. Her sons are not aware of prior episodes of AFib, she is not anticoagulated. She presumably was in sinus when she was here several days ago but we do not know when it started since then. She is not a candidate for cardioversion. After IV fluids her heart rate was improved from 150s to 130s I gave her 10 mg of IV diltiazem and that did help control her rate further with it being in the low 100s. Started a 2 L of fluid as well. Labs were notable for an elevated white blood cell count of 14.5 and hemoglobin is 16.4, there is some component likely of hemoconcentration, but she was treated for a possible UTI when she was seen here few days ago. Review of her culture shows that it grew only mixed Gram-positive adriana. Her electrolytes were normal, BUN was elevated at 42, creatinine of 0.8. Blood sugar was 151. Lactate was 1.4, LFTs unremarkable. CRP was elevated at 13.9. TSH was elevated at 6 but free T4 was normal. We did get a cath urinalysis and this was negative with 0-2 red cells and 0-2 white cells. I did chest x-ray as well continuing to look for a possible infectious source for her elevated white blood cell count and CRP. By my review this showed no evidence of infiltrate or other acute findings, final radiology read was negative. Point of care troponin was 0.04. She did have an additional dose of 5 mg of IV diltiazem for rising heart rate. She had no further hemodynamic instability or complaints although she remains nonverbal. Plan will be admission to the hospitalist service for management of atrial fibrillation with rapid ventricular rate. Vital Signs Vital signs: Initial Vital Signs Temperature 98.8 F 01/21/23 11:48 Temperature Source Temporal Artery Scan 01/21/23 11:48 Pulse Rate 138 H 01/21/23 11:48 Respiratory Rate 18 01/21/23 11:48 Vital Signs Temperature 98.8 F 01/21/23 11:48 Pulse Rate 138 H 01/21/23 11:48 Respiratory Rate 18 01/21/23 11:48 Temperature 98.8 F 01/21/23 11:48 Pulse Rate 101 H 01/21/23 20:02 Respiratory Rate 18 01/21/23 11:48 Blood Pressure 118/79 01/21/23 23:31 Pulse Oximetry 94 01/21/23 20:02 Medications Administered Medications: Discontinued Medications Generic Name Dose Route Start Last Admin Trade Name Anai PRN Reason Stop Dose Admin Diltiazem HCl 10 mg 01/21/23 18:39 01/21/23 18:57 Diltiazem 5 Mg/Ml Inj IVP 01/21/23 18:40 10 mg ONCE ONE Administration Diltiazem HCl 5 mg 01/21/23 21:57 01/21/23 22:28 Diltiazem 5 Mg/Ml Inj IVP 01/21/23 21:58 5 mg ONCE ONE Administration Sodium Chloride 1,000 mls @ 1,000 mls/hr 01/21/23 17:15 01/21/23 18:50 0.9 % Sodium Chloride 1000 Ml IV 01/21/23 18:14 Infused .Q1H MATILDE Infusion Sodium Chloride 1,000 mls @ 1,000 mls/hr 01/21/23 18:45 01/21/23 20:38 0.9 % Sodium Chloride 1000 Ml IV 01/21/23 19:44 Infused .Q1H MATILDE Infusion Medical Decision Making Lab Data Labs: Lab Results 01/21/23 01/21/23 01/21/23 Range/Units 17:09 17:30 20:49 WBC 14.50 H (4.50-11.00) K/uL RBC 5.71 H (4.00-5.20) m/uL Hgb 16.4 H (12.0-16.0) gm/dL Hct 50.1 (33.0-51.0) % MCV 88 (80-100) fL MCH 29 (26-34) pg MCHC 33 (32-36) gm/dL RDW Coeff of Cinda 14.8 (11.5-15.5) % Plt Count 300 (140-440) K/uL Neut % (Auto) 83.8 H (42.0-72.0) % Lymph % (Auto) 8.0 L (20-44) % [place] % (Auto) 7.9 (0.0-11.0) % Eos % (Auto) 0.0 (0.0-7.0) % Baso % (Auto) 0.1 (0.0-3.0) % Neut # (Auto) 12.20 H (1.7-7.0) K/uL Lymph # (Auto) 1.20 (0.90-2.90) K/uL [place] # (Auto) 1.10 H (0.00-0.90) K/UL Eos # (Auto) 0.00 (0.00-0.50) K/uL Baso # (Auto) 0.00 (0.00-0.30) K/uL Abs Immat Gran (auto) 0.00 (0.00-0.30) K/uL Imm/Tot Granulo (auto) 0.2 % Sodium 143 (135-149) mmol/L Potassium 3.8 (3.6-5.1) mmol/L Chloride 113 (96-114) mmol/L Carbon Dioxide 21 (20-32) mmol/L Anion Gap 9 (7-15) mEq/L BUN 42 H (7-30) mg/dL Creatinine 0.8 (0.5-1.5) mg/dL Estimated Creat Clear 28.38 Estimated GFR 71 ml/min Glucose 151 H (60-115) mg/dL Lactate 2.1 H 1.4 (0.5-1.9) mmol/L Calcium 9.4 (8.4-10.6) mg/dL Magnesium 2.5 (1.5-2.6) mg/dL Total Bilirubin 1.2 (0.1-1.5) mg/dL Direct Bilirubin 0.2 (0.0-0.5) mg/dL AST 35 (12-35) U/L ALT 22 (4-35) U/L Alkaline Phosphatase 152 H (40-150) U/L C-Reactive Protein 13.9 H (0.5-1.0) mg/dL Total Protein 7.3 (6.0-8.3) g/dL Albumin 4.2 (3.3-5.0) g/dL TSH 6.030 H (0.270-4.200) uIU/mL Free T4 1.70 (0.70-1.85) ng/dL POC Troponin I 0.04 (0.01-0.04) ng/ml
[2023-01-21] MEDS: 0.9 % SODIUM CHLORIDE 1000 ml 1,000 ML IV ×2 (17:49→18:57)
[2023-01-21 17:53] LABS: Basophils Percent Auto 0.1 % (0.0-3.0); Hematocrit 50.1 % (33.0-51.0); Hemoglobin* 16.4 gm/dL (12.0-16.0); Immature Granulocytes Pct Auto 0.2 %; Mean Corpuscular HGB Conc 33 gm/dL (32-36); Mean Corpuscular Hemoglobin 29 pg (26-34); Mean Corpuscular Volume 88 fL (80-100); Monocytes Percent Auto 7.9 % (0.0-11.0); Neutrophils Percent Auto 83.8 % (42.0-72.0); Platelet Count* 300 K/uL (140-440); RDW Coefficient of Variation % 14.8 % (11.5-15.5); Red Blood Count 5.71 m/uL (4.00-5.20)
[2023-01-21 17:54] LABS: Slide Review Reflex No
[2023-01-21 17:54] LABS: Troponin, Point-of-Care* 0.04 ng/ml (0.01-0.04)
[2023-01-21 18:01] LABS: Lactate Sepsis w/Reflex* 2.1 mmol/L (0.5-1.9)
[2023-01-21 18:06] LABS: Albumin* 4.2 g/dL (3.3-5.0); Chloride* 113 mmol/L (96-114); Sodium* 143 mmol/L (135-149)
[2023-01-21 18:07] LABS: Potassium* 3.8 mmol/L (3.6-5.1)
[2023-01-21 18:09] LABS: Anion Gap 9 mEq/L (7-15); Bilirubin Direct* 0.2 mg/dL (0.0-0.5); Bilirubin Total* 1.2 mg/dL (0.1-1.5); Carbon Dioxide* 21 mmol/L (20-32); Creatinine* 0.8 mg/dL (0.5-1.5); Est. Creatinine Clearance* 28.38; Estimated Glomerular Filt Rate 71 ml/min; Total Protein* 7.3 g/dL (6.0-8.3)
[2023-01-21 18:10] LABS: Alanine Aminotransferase* 22 U/L (4-35); Alkaline Phosphatase* 152 U/L (40-150); Aspartate Amino Transferase* 35 U/L (12-35); Blood Urea Nitrogen* 42 mg/dL (7-30); Calcium* 9.4 mg/dL (8.4-10.6); Glucose* 151 mg/dL (60-115)
[2023-01-21 18:40] LABS: C Reactive Protein* 13.9 mg/dL (0.5-1.0)
--- NOTE | 2023-01-21 18:42 | CRLHL7_ITS ---
For Patients: As a result of the Cures Act, medical imaging exams and procedure reports are released immediately into your electronic medical record. You may view this report before your referring provider. If you have questions, please contact your health care provider. INDICATION: Cough. TECHNIQUE: Chest 1 view. COMPARISON: 01/18/2023. FINDINGS: Cardiovascular and mediastinum: Stable cardiomediastinal silhouette. Lungs and pleural spaces: No focal consolidation. No pleural effusion or pneumothorax. Bones and soft tissues: Bilateral reverse total shoulder arthroplasty. IMPRESSION: No acute pulmonary process. Dictated by Edison Norris MD @ 01/21/2023 8:38:45 PM (Electronically Signed)
[2023-01-21] MEDS: dilTIAZem 5 MG/ML inj 10 MG IVP (18:57)
--- NOTE | 2023-01-21 20:29 | ED.NURSE ---
Pt report given to oncrigoberto RN
[2023-01-21 20:52] LABS: Lactate Sepsis 2 Hour 1.4 mmol/L (0.5-1.9)
[2023-01-21 21:50] LABS: Magnesium* 2.5 mg/dL (1.5-2.6)
[2023-01-21 22:23] LABS: Appearance Urine Clear (Clear); Bilirubin Urine Negative (Negative); Blood Urine 1+ (Negative); Color Urine Yellow (Yellow); Glucose Urine Negative (Negative); Ketones Urine 1+ (Negative); Leukocyte Esterase Urine Negative (Negative); Nitrite Urine Negative (Negative); Protein Urine Negative (Negative); Urobilinogen Urine 0.2 (0.2-1.0); pH Urine 5.5 (5.0-8.5)
[2023-01-21] MEDS: dilTIAZem 5 MG/ML inj IVP (22:28)
--- NOTE | 2023-01-21 22:29 | ED.NURSE ---
Patient straight cath for urine specimen. 300 cc urine drained. Patient tolerated the procedure well
[2023-01-21 22:58] LABS: RBC Urine 0-2 (0-2); Squamous Epithelial Cell Urine Few (None-Few); WBC Urine 0-2 (0-5)
--- NOTE | 2023-01-21 23:00 | PM.IMHP1 ---
Hospitalist- H&P: HPI History of Present Illness Date Seen: 01/21/23 Chief complaint: Irregular heartbeat Narrative: Susan Gunter is a 87 year old woman referred to the emergency department for assessment of an irregular heart rhythm with rapid rate. At baseline she has advanced dementia of the Alzheimer's type, late onset, and is cared for by her 2 sons with some additional in-home help. Patient unable to express her own needs or wants. Patient is dependent for family members and others for all cares and needs. Three days ago she was evaluated in the emergency department for assessment of dysphagia and spitting up for the past several months. Family indicate that the patient's oral consumption has decreased significantly over the last few weeks. In the course of evaluating her in the emergency department on 01/18/2023, a CT scan of the abdomen and pelvis was undertaken which demonstrated debris in the distal portion of the esophagus suggestive of a possible distal esophageal obstruction. Patient was able to swallow liquids and was discharged home with a plan to be evaluated with upper endoscopy on 01/23/2023 at [facility]. Was seemingly in her usual state of condition when her at home independent call center agent evaluated her today and found her heart rhythm irregular with a rapid rate and thus recommended to family that they bring her in for further assessment. Is nearly as they could tell the patient was not having any symptoms in association with this, including no chest heaviness, pressure, tightness, or pain, no dyspnea at rest, paroxysmal nocturnal dyspnea, orthopnea, no syncope or near syncope, no nausea vomiting, no stated palpitations or fluttering, no dependent edema. Patient unable to express any of these symptoms, but sons to care for her indicate they are unable to tell that their mother has any of these symptoms. Similarly her home health aide who assessed her today was not able to ascertain any of these symptoms. In the emergency department she is found to be in atrial fibrillation with a rapid ventricular response. They do stone polisher machine 10 mg of IV diltiazem and her rate slows down considerably but she continues to be in atrial fibrillation. This new finding in conjunction with the patient's dysphagia and spitting up are sufficient to warrant that she be admitted to the hospital for additional assessment of atrial fibrillation, additional management considerations, and concurrent assessment and consideration about her dysphagia and spitting up with possible distal esophageal obstruction. Review of Systems Status of ROS: Reports: 10 or more systems reviewed and unremarkable except as noted in History and below Narrative: No fevers, rigors, diaphoresis. No obvious dysuria, urgency, frequency, hematuria. No diarrhea or constipation. At baseline patient needs total assist with pivot transfers. Sons are usually able to provide this. Over the last 2 weeks, her son, Sterling, indicates that transferring has become increasingly difficult. Recently during 1 of these pivot transfers as Sterling was trying to hold his mother up her head struck his shoulder and caused a bruise over the left forehead area. No falls per se. No other trauma or injury. No blood loss of any sort. Patient is cared for 24 hours per day by family and or others. Patient has longstanding order for DNR DNI in the event of cardiopulmonary demise. Patient and family have indicated clearly a desire for no heroic measures to be undertaken on the 1 hand, but on the other hand they indicate they would like to consider options for conditions as they arise, again so long as it does not involve extensive interventions and so forth. They are open to hospitalizations if needed. Two sons principally caring for their mother are maame, primary power of compliance attorney for health, and Sterling, who principally takes care of his mother with help from others. 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 (current) use of non-steroidal anti-inflammatories (NSAID) (ICD-10) Primary osteoarthritis involving multiple joints ?M15.9 - Polyosteoarthritis, unspecified (ICD-10) Hyperlipidemia ?E78.5 - Hyperlipidemia, unspecified (ICD-10) History of diverticulitis (01/31/13) ?Z87.19 - Personal history of other diseases of the digestive system (ICD-10) Frailty syndrome in geriatric patient ?R54 - Age-related physical debility (ICD-10) Fracture of acromion of scapula ?S42.123A - Displaced fracture of acromial process, unspecified shoulder, initial encounter for closed fracture (ICD-10) 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) ?G30.9 - Alzheimer's disease, unspecified (ICD-10) ?F02.80 - Dementia in other diseases classified elsewhere, unspecified severity, without behavioral disturbance, psychotic disturbance, mood disturbance, and anxiety (ICD-10) Benign essential hypertension ?I10 - Essential (primary) hypertension (ICD-10) Surgical History History of bilateral cataract extraction (~03/2021) ?Z98.41 - Cataract extraction status, right eye (ICD-10) ?Z98.42 - Cataract extraction status, left eye (ICD-10) History of open reduction and internal fixation (ORIF) procedure (~2020) ?Z98.890 - Other specified postprocedural states (ICD-10) History of reverse total replacement of right shoulder joint (06/16/13) ?Z98.890 - Other specified postprocedural states (ICD-10) History of total left knee replacement (Unknown) ?Z96.652 - Presence of left artificial knee joint (ICD-10) Status post total right knee replacement (~2018) ?Z96.651 - Presence of right artificial knee joint (ICD-10) History of right knee surgery ?Z98.890 - Other specified postprocedural states (ICD-10) History of open reduction and internal fixation (ORIF) procedure (11/2019) ?Z98.890 - Other specified postprocedural states (ICD-10) History of open reduction and internal fixation (ORIF) procedure (2011) ?Z98.890 - Other specified postprocedural states (ICD-10) History of hysterectomy (1973) ?Z90.710 - Acquired absence of both cervix and uterus (ICD-10) History of bladder repair surgery ?Z98.890 - Other specified postprocedural states (ICD-10) History of appendectomy (1979) ?Z90.49 - Acquired absence of other specified parts of digestive tract (ICD-10) Social History Narrative: , lives with poodle dog, 3 adult children, nonsmoker, social drinker 3-4 per week Smoking Status: Never smoker Do you use any of these nicotine containing products: None How often do you have a drink containing alcohol: never How often do you have six or more drinks on one occasion: Never AUDIT-C Alcohol total score: 0 Non-prescribed substance use: denies use service: No Meds Home Medications and Allergies Home Medications Medication Instructions Recorded Confirmed Type simvastatin 20 mg tablet 20 mg PO .Bedtime 11/29/21 01/21/23 History cholecalciferol (vitamin D3) 25 25 mcg PO QDAY 04/10/22 01/21/23 History mcg (1,000 unit) capsule (Vitamin D3) Home Medication Comments: Amlodipine 5 mg once daily Donepezil 20 mg once daily Meloxicam 15 mg once daily, longstanding Ciprofloxacin 250 mg twice daily for 5 days which was started on 01/18/2023 for presumed possible UTI, with urine culture subsequently demonstrating mixed adriana and no additional cultures pursued Allergies Allergy/AdvReac Type Severity Reaction Status Date / Time azithromycin Allergy Unknown Verified 01/21/23 11:56 Cephalosporins Allergy Unknown Verified 01/21/23 11:56 lisinopril Allergy Unknown Verified 01/21/23 11:56 oxycodone Allergy Unknown Verified 01/21/23 11:56 Penicillins Allergy Unknown Verified 01/21/23 11:56 environmental Allergy Unknown Uncoded 11/20/22 11:08 Exam Narrative: Exam Narrative: Examined patient the emergency department. She is sound asleep on the exam table. She easily awakens by touching her hand in calling her name. The extent of her interaction is that she smiles at her 2 sons. Does not engage in meaningful dialogue or conversation whatsoever. Sons indicate this is how she normally interacts. Appears comfortable in no acute distress. Does not follow simple commands. Appears thin and cachectic. Prominent bony features. Sunken face. Normal tympanic membranes. Midline nasal septum. Dry buccal mucosa. Dentition in fair repair. Neck is supple. Midline trachea. No palpable head and neck lymphadenopathy. Lungs are clear to auscultation. Heart tones are chaotic with rapid rate. No obvious murmur. Abdomen is thin with active bowel sounds, soft, nontender. Extremities with multiple bruises at multiple stages. Skin is thin and fragile. Over carrillo she has some dry bloody eschars. No ulcers. No lower extremity edema. No focal motor neurologic deficits. Const: Vital Signs, click to edit/add: Vital Signs - 24 hr 01/21/23 11:48 01/21/23 17:09 01/21/23 17:46 Temperature 98.8 F Pulse Rate Pulse Rate [Pulse Oximeter] 138 H Respiratory Rate 18 Blood Pressure 127/111 H Pulse Oximetry 94 01/21/23 17:51 01/21/23 18:00 01/21/23 18:01 Temperature Pulse Rate 134 H 133 H 128 H Pulse Rate [Pulse Oximeter] Respiratory Rate Blood Pressure 147/124 H Pulse Oximetry 94 93 93 01/21/23 18:15 01/21/23 18:30 01/21/23 18:32 Temperature Pulse Rate 145 H 147 H 141 H Pulse Rate [Pulse Oximeter] Respiratory Rate Blood Pressure 138/125 H Pulse Oximetry 95 93 94 01/21/23 18:45 01/21/23 19:01 01/21/23 19:02 Temperature Pulse Rate 138 H 120 H 88 Pulse Rate [Pulse Oximeter] Respiratory Rate Blood Pressure 131/107 H Pulse Oximetry 94 93 93 01/21/23 19:15 01/21/23 19:32 01/21/23 19:52 Temperature Pulse Rate 113 H 120 H Pulse Rate [Pulse Oximeter] Respiratory Rate Blood Pressure 148/88 H Pulse Oximetry 94 96 01/21/23 20:00 01/21/23 20:01 01/21/23 20:02 Temperature Pulse Rate 112 H 103 H 101 H Pulse Rate [Pulse Oximeter] Respiratory Rate Blood Pressure 138/95 H Pulse Oximetry 95 95 94 01/21/23 20:31 01/21/23 21:01 01/21/23 21:31 Temperature Pulse Rate Pulse Rate [Pulse Oximeter] Respiratory Rate Blood Pressure 134/81 134/82 127/74 Pulse Oximetry 01/21/23 22:01 01/21/23 22:31 Temperature Pulse Rate Pulse Rate [Pulse Oximeter] Respiratory Rate Blood Pressure 125/95 H 101/70 Pulse Oximetry Documenting provider has reviewed patient's vital signs: yes Hospitalist - H&P: Result Labs Labs: Short CBC 01/21/23 Range/Units 17:30 WBC 14.50 H (4.50-11.00) K/uL Hgb 16.4 H (12.0-16.0) gm/dL Hct 50.1 (33.0-51.0) % Plt Count 300 (140-440) K/uL BMP 01/21/23 17:30 Sodium 143 Potassium 3.8 Chloride 113 Carbon Dioxide 21 BUN 42 H Creatinine 0.8 Glucose 151 H Calcium 9.4 Liver Function 01/21/23 Range/Units 17:30 Total Bilirubin 1.2 (0.1-1.5) mg/dL Direct Bilirubin 0.2 (0.0-0.5) mg/dL AST 35 (12-35) U/L ALT 22 (4-35) U/L Alkaline Phosphatase 152 H (40-150) U/L Albumin 4.2 (3.3-5.0) g/dL Urine 01/21/23 Range/Units Unknown Urine Color Yellow (Yellow) Urine Appearance Clear (Clear) Urine pH 5.5 (5.0-8.5) Ur Specific Dunn 1.020 (1.000-1.030) Urine Protein Negative (Negative) Urine Glucose (UA) Negative (Negative) ECG Attestation: I personally reviewed and interpreted this ECG as follows: ECG interpretation date: 01/21/23 Interpretation: AFib with RVR. No ischemia or infarct pattern. Imaging Chest x-ray: Attestation: I have reviewed the pertinent imaging results. Radiologist's impression: No acute abnormalities on today's exam or on the chest x-ray from 01/18/2023. CT scan of abdomen and pelvis: Attestation: I have reviewed the pertinent imaging results. Radiologist's impression: 01/18/2023 FINDINGS: Evaluation limited by placement of the patient`s arms across the area of interest. The has had a previous intramedullary glen and cortical screw fixation in the right hip, which has been removed. There are several new stabilizing nails across the hip for a previous fracture. There is partial collapse of the head, perhaps related to AVN or degeneration. These changes are new from the remote prior when the femoral head was intact. Multilevel degenerative changes of the spine. Severe compression deformity of the L2 vertebral body, also new from the remote prior. No definitive acute retropulsion. There is grade 1-2 anterolisthesis of L4 on L5 seen along with a left-sided pars defects. Leftward scoliosis. Right-sided sacral insufficiency fracture indicated by subtle sclerosis vertically seen within the right indigo sacrum (see image 62, series 4)for example. This is supported by a mild depression seen on the axial views, image 69, series 2, confirming the presence of a sacral insufficiency fracture. Esophageal distention with a large amount of esophageal debris seen in the visualized portions of the lung bases. This is similar to started. No new focal or diffuse pulmonary opacities. The lung bases appear clear. The hardware is seen in the bilateral humerus incidentally noted. Atherosclerotic changes. Colonic diverticulosis. No free intraperitoneal air or fluid. No renal or ureteral calculi. No hydronephrosis. Adrenal glands appear unremarkable. No splenomegaly or splenic fluid. Noncirrhotic liver morphology. No perihepatic fluid. No gallbladder distention. No peripancreatic fluid or abscess. Urinary bladder appears unremarkable. No obvious suspicious adnexal mass. Hysterectomy change. Several small calcifications seen along the posterior urinary bladder likely small ureteral calculi. IMPRESSION: 1. Insufficiency fracture right hemisacrum. 2. Chronic fracture right femoral neck, with previous intramedullary glen and screw fixation, now with several femoral neck screws. 3. Severe compression deformity of the L2 vertebral body. 4. Grade 1-2 anterolisthesis of L4 on L5 with a unilateral pars defect on the left. 5. Colonic diverticulosis. 6. Urinary bladder calculi. 7. Large amount of debris within the visualized portions of the distal esophagus. Assessment and Plan Assessment and plan (1) Atrial fibrillation with rapid ventricular response: Problem comment: -new diagnosis -rate control with IV and oral metoprolol and IV and oral diltiazem -enoxaparin anticoagulation for next 24 hours only then stop in anticipation of possible esophageal gastroduodenoscopy plus-minus dilatation on 01/23/2023. - serial troponin I, telemetry, transthoracic echocardiogram - not a candidate for DC cardioversion given the uncertainty of when she went into atrial fibrillation with rapid ventricular response Status: Acute (2) Dysphagia: Problem comment: -possible distal esophageal obstruction, etiology not yet determined, differential diagnosis including simple versus complex esophageal stricture, ring formation, neoplasm, infection, inflammation. -tentatively scheduled for EGD plus-minus dilatation on 01/23/2023 at [facility] suite. Consider discussion with endoscopist on 01/22/2023. -bedside swallow evaluation by our speech pathologist requesting -consider discussion with radiologist about additional imaging options on 01/22/2023 Status: Acute (3) Dementia due to Alzheimer's disease: Problem comment: -patient has advanced disease, requires assist with all 6/6 ADLs--family requesting support with exploring options to continue to care for their mother in their home. Will see if physical therapy, occupational therapy, speech pathology, dietitian, and clinical social work aide can help in this regard. Status: Chronic (4) Osteoporosis: Problem comment: CT scan on 01/18/2023 demonstrated the following findings: 1. Insufficiency fracture right hemisacrum. 2. Chronic fracture right femoral neck, with previous intramedullary glen and screw fixation, now with several femoral neck screws. 3. Severe compression deformity of the L2 vertebral body. 4. Grade 1-2 anterolisthesis of L4 on L5 with a unilateral pars defect on the left. Status: Chronic (5) Urinary tract infection: Problem comment: -treated empirically for possible UTI on 01/18/2023 with Cipro 250 mg p.o. b.i.d. 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 q.i.d. empirically on 01/22/2023 Status: Chronic Plan 1. Reviewed above with patient, and she is not able to engage at all in this regard. This is not new. 2. Reviewed the above with the patient's 2 sons, her and Sterling. Answered their questions. They are agreeable with above stated plans and recommendations.
--- NOTE | 2023-01-21 23:37 | ED.NURSE ---
Nurse to nurse report given to M/S RN.
[2023-01-22] VITALS (11 sets, daily range): BP systolic 115–152; BP diastolic 80–93; PULSE 94–144; RESP 16–18; TEMP 36.3–36.6; O2SAT 93–96; BMI 18.9
[2023-01-22 01:06] LABS: NT Pro B Type NatriureticPept* 5230 pg/mL
[2023-01-22 01:13] LABS: Troponin I* 0.07 ng/mL (0.01-0.04)
--- NOTE | 2023-01-22 01:21 | PC.NURSE ---
Lab calling about a result ordered by Dr Pham that was an add on to 1730 labs that were done in the ED-trop 0.07-inspector exhaust emissions MD with these results. repeat with am labs. RN ordered.
[2023-01-22] MEDS: LACTATED RINGERS 1000 ML 1,000 ML 75 ML IV ×2 (01:26→17:12)
[2023-01-22] MEDS: ENOXAPARIN 40 MG/0.4 ML INJ SUBCUT ×2 (01:27→12:57)
[2023-01-22] MEDS: METOPROLOL TARTRATE 1 MG/ML inj 2.5 MG IVP ×3 (04:02→10:55)
[2023-01-22 06:41] LABS: HCO3 VBG 24 mmol/L (21-28); Lactate* 1.1 mmol/L (0.5-1.9); PCO2 VBG 36 mmHG (40-50); PO2 VBG 77.6 mmHG (25-47); pH VBG 7.435 (7.32-7.43)
[2023-01-22 06:52] LABS: Basophils Absolute Auto 0.02 K/uL (0.00-0.30); Basophils Percent Auto 0.2 % (0.0-3.0); Eosinophils Absolute Auto 0.05 K/uL (0.00-0.50); Eosinophils Percent Auto 0.5 % (0.0-7.0); Hematocrit 42.1 % (33.0-51.0); Hemoglobin* 13.8 gm/dL (12.0-16.0); Immature Granulocytes Abs Auto 0.03 K/uL (0.00-0.30); Immature Granulocytes Pct Auto 0.3 %; Lymphocytes Percent Auto 18.5 % (20-44); Mean Corpuscular HGB Conc 33 gm/dL (32-36); Mean Corpuscular Hemoglobin 29 pg (26-34); Mean Corpuscular Volume 88 fL (80-100); Monocytes Percent Auto 8.9 % (0.0-11.0); Neutrophils Absolute Auto 7.71 K/uL (1.7-7.0); Neutrophils Percent Auto 71.6 % (42.0-72.0); Platelet Count* 255 K/uL (140-440); RDW Coefficient of Variation % 15.1 % (11.5-15.5); Red Blood Count 4.76 m/uL (4.00-5.20); White Blood Count* 10.76 K/uL (4.50-11.00)
[2023-01-22 07:08] LABS: Chloride* 117 mmol/L (96-114); Iron* 55 ug/dL (37-170)
[2023-01-22 07:09] LABS: Potassium* 3.5 mmol/L (3.6-5.1); Sodium* 147 mmol/L (135-149)
[2023-01-22 07:11] LABS: Creatinine* 0.5 mg/dL (0.5-1.5); Est. Creatinine Clearance* 31.31; Estimated Glomerular Filt Rate 91 ml/min; Lipase* 86 U/L (23-300); Slide Review Reflex No
[2023-01-22 07:12] LABS: Anion Gap 6 mEq/L (7-15); Blood Urea Nitrogen* 27 mg/dL (7-30); Carbon Dioxide* 24 mmol/L (20-32); Cholesterol* 197 mg/dL (90-199); Glucose* 94 mg/dL (60-115); Phosphorus* 2.8 mg/dL (2.5-4.5); Triglycerides* 119 mg/dL (40-149)
[2023-01-22 07:13] LABS: Calcium* 8.2 mg/dL (8.4-10.6); HDL Cholesterol* 56 mg/dL (>=50); LDL Cholesterol Calculated 117 mg/dL (<100); Magnesium* 2.3 mg/dL (1.5-2.6)
[2023-01-22 07:15] LABS: C Reactive Protein* 6.4 mg/dL (0.5-1.0)
[2023-01-22 07:19] LABS: Percent Iron Saturation 27 % (20-50); Total Iron Binding Capacity 202 ug/dL (265-497)
[2023-01-22 07:21] LABS: Troponin I* 0.05 ng/mL (0.01-0.04)
--- NOTE | 2023-01-22 07:42 | PC.NURSE ---
End of shift report [id number]: Admitted to the floor at 0010, accompanied by son/POA. Patient has advanced Alzheimers/dementia and is unable to answer questions or follow commands. Per son, Susan is seen by homecare nurse today for scheduled visit and recommended patient be seen in the ER for rapid pulse, patient found to have new onset A-fib with RVR. Patient is unable to answer any health questions and son that is present is not the who currently lives with patient and is unsure of answers to most questions. Patient appears frail and cachectic, she is combative with cares and will attempt to strike instructional writer when instructional writer is near. No open areas noted, patient does have multiple bruises to upper and lower extremities as well as to forehead. Family denies any falls.?Patient combative with cares and attempting to hit instructional writer when getting vitals, patient pulled off oximeter and hitting out with hand at instructional writer. Son present and per his report these behaviors are her baseline.
[2023-01-22 07:50] LABS: Hemoglobin A1C* 5.3 % (0-5.6)
--- NOTE | 2023-01-22 10:37 | P.IMPN_ITS ---
Progress Note: A&P Assessment and plan (1) Atrial fibrillation with rapid ventricular response: Problem details: -new diagnosis -rate control with IV and oral metoprolol and IV and oral diltiazem. Holding on oral meds as she is having difficulty swallowing. -enoxaparin anticoagulation for next 24 hours only then stop in anticipation of possible esophageal gastroduodenoscopy plus-minus dilatation on 01/23/2023. - serial troponin I, telemetry, transthoracic echocardiogram - not a candidate for DC cardioversion given the uncertainty of when she went into atrial fibrillation with rapid ventricular response Status: Acute (2) Dysphagia: Problem details: -possible distal esophageal obstruction, etiology not yet determined, differential diagnosis including simple versus complex esophageal stricture, ring formation, neoplasm, infection, inflammation. -tentatively scheduled for EGD plus-minus dilatation on 01/23/2023 at [facility] Endoscopy suite. Consider discussion with endoscopist on 01/22/2023. -bedside swallow evaluation by our speech pathologist requesting (on hold) -consider discussion with radiologist about additional imaging options on 01/22/2023 Status: Acute (3) Urinary tract infection: Problem details: -treated empirically for possible UTI on 01/18/2023 with Cipro 250 mg p.o. b.i.d. -stop the ciprofloxacin on 01/21/2023 given urine culture growing out only mixed adriana Status: Acute (4) Dementia due to Alzheimer's disease: Problem details: -patient has advanced disease, requires assist with all 6/6 ADLs--family requesting support with exploring options to continue to care for their mother in their home. Will see if physical therapy, occupational therapy, speech pathology, dietitian, and psychosocial rehabilitation counselor can help in this regard. Status: Chronic (5) Frailty syndrome in geriatric patient: Status: Chronic Subjective Date Seen: 01/22/23 Interval history: Daily Progress Note - Hospital Medicine Day #: 1 CC: AFib RVR, distal esophageal obstruction, advanced dementia OVERNIGHT UPDATES FROM STAFF & MED, LAB, IMAGING UPDATES Patient is restless and agitated at times. Heart rate has been 98-130. She does not take p.o. well secondary to this esophageal obstruction. Managing heart rate with IV medications. Planned for today. 127/83. Pulse ranging 100-130. Respiratory rate 18. Afebrile. O2 sat 94% on room air. CBC unremarkable this morning. PH 7.43 No CO2 retention Potassium mildly depressed at 3.5 Tropes 0.05, this is down trending from yesterday at 0.07 CRP 6.4 I reviewed her admission x-ray and her ER CT abdomen pelvis from 01/18. Objective: Resting comfortably upon my exam Vitals: see above Lungs: Clear. Cardiac: S1S2. Irregularly irregular. Heart rate is around 105 Disposition/Potential discharge - Likely to return to previous living situation. Exam Const: Vital Signs, click to edit/add: Vital Signs - 24 hr 01/21/23 11:48 01/21/23 17:09 01/21/23 17:46 Temperature 98.8 F Pulse Rate Pulse Rate [Left P ulse Oximeter] Pulse Rate [Pulse Oximeter] 138 H Respiratory Rate 18 Blood Pressure 127/111 H Blood Pressure [Le ft Arm] Pulse Oximetry 94 Oxygen Delivery Me thod 01/21/23 17:51 01/21/23 18:00 01/21/23 18:01 Temperature Pulse Rate 134 H 133 H 128 H Pulse Rate [Left P ulse Oximeter] Pulse Rate [Pulse Oximeter] Respiratory Rate Blood Pressure 147/124 H Blood Pressure [Le ft Arm] Pulse Oximetry 94 93 93 Oxygen Delivery Me thod 01/21/23 18:15 01/21/23 18:30 01/21/23 18:32 Temperature Pulse Rate 145 H 147 H 141 H Pulse Rate [Left P ulse Oximeter] Pulse Rate [Pulse Oximeter] Respiratory Rate Blood Pressure 138/125 H Blood Pressure [Le ft Arm] Pulse Oximetry 95 93 94 [facility] 01/21/23 18:45 01/21/23 19:01 01/21/23 19:02 Temperature Pulse Rate 138 H 120 H 88 Pulse Rate [Left P ulse Oximeter] Pulse Rate [Pulse Oximeter] Respiratory Rate Blood Pressure 131/107 H Blood Pressure [Le ft Arm] Pulse Oximetry 94 93 93 [facility] 01/21/23 19:15 01/21/23 19:32 01/21/23 19:52 Temperature Pulse Rate 113 H 120 H Pulse Rate [Left P ulse Oximeter] Pulse Rate [Pulse Oximeter] Respiratory Rate Blood Pressure 148/88 H Blood Pressure [Le ft Arm] Pulse Oximetry 94 96 [facility] 01/21/23 20:00 01/21/23 20:01 01/21/23 20:02 Temperature Pulse Rate 112 H 103 H 101 H Pulse Rate [Left P ulse Oximeter] Pulse Rate [Pulse Oximeter] Respiratory Rate Blood Pressure 138/95 H Blood Pressure [Le ft Arm] Pulse Oximetry 95 95 94 Oxygen Delivery Me thod 01/21/23 20:31 01/21/23 21:01 01/21/23 21:31 Temperature Pulse Rate Pulse Rate [Left P ulse Oximeter] Pulse Rate [Pulse Oximeter] Respiratory Rate Blood Pressure 134/81 134/82 127/74 Blood Pressure [Le ft Arm] Pulse Oximetry [facility] 01/21/23 22:01 01/21/23 22:31 01/21/23 22:59 Temperature Pulse Rate Pulse Rate [Left P ulse Oximeter] Pulse Rate [Pulse Oximeter] Respiratory Rate Blood Pressure 125/95 H 101/70 116/70 Blood Pressure [Le ft Arm] Pulse Oximetry [facility] 01/21/23 23:01 01/21/23 23:31 01/22/23 00:40 Temperature 97.4 F L Pulse Rate Pulse Rate [Left P ulse Oximeter] 111 H Pulse Rate [Pulse Oximeter] Respiratory Rate 16 Blood Pressure 128/88 118/79 Blood Pressure [Le ft Arm] 115/92 H Pulse Oximetry 95 [facility] 01/22/23 00:40 01/22/23 03:00 01/22/23 08:42 Temperature 97.4 F L Pulse Rate Pulse Rate [Left P ulse Oximeter] 138 H Pulse Rate [Pulse Oximeter] Respiratory Rate 16 18 18 Blood Pressure Blood Pressure [Le ft Arm] 128/80 Pulse Oximetry 95 93 Oxygen Delivery [facility] Room Air Room Air 01/22/23 08:42 01/22/23 08:42 01/22/23 10:34 Temperature 97.8 F Pulse Rate 129 H Pulse Rate [Left P ulse Oximeter] 138 H Pulse Rate [Pulse Oximeter] Respiratory Rate 18 18 Blood Pressure Blood Pressure [Le ft Arm] 127/83 Pulse Oximetry 94 94 [facility] Room Air Labs Labs: Laboratory Results - last 24 hr 01/21/23 01/21/23 01/21/23 17:09 17:30 20:49 WBC 14.50 H RBC 5.71 H Hgb 16.4 H Hct 50.1 MCV 88 MCH 29 MCHC 33 RDW Coeff of Cinda 14.8 Plt Count 300 Neut % (Auto) 83.8 H Lymph % (Auto) 8.0 L [place] % (Auto) 7.9 Eos % (Auto) 0.0 Baso % (Auto) 0.1 Neut # (Auto) 12.20 H Lymph # (Auto) 1.20 [place] # (Auto) 1.10 H Eos # (Auto) 0.00 Baso # (Auto) 0.00 Abs Immat Gran (auto) 0.00 Imm/Tot Granulo (auto) 0.2 VBG pH VBG pCO2 VBG pO2 VBG HCO3 Sodium 143 Potassium 3.8 Chloride 113 Carbon Dioxide 21 Anion Gap 9 BUN 42 H Creatinine 0.8 Estimated Creat Clear 28.38 Estimated GFR 71 Glucose 151 H Hemoglobin A1c Lactate 2.1 H 1.4 Calcium 9.4 Phosphorus Magnesium 2.5 Iron TIBC % Saturation Total Bilirubin 1.2 Direct Bilirubin 0.2 AST 35 ALT 22 Alkaline Phosphatase 152 H Troponin I 0.07 H* C-Reactive Protein 13.9 H NT-Pro-B Natriuret Pep 5230 Total Protein 7.3 Albumin 4.2 Triglycerides Cholesterol LDL Cholesterol, Calc HDL Cholesterol Lipase TSH 6.030 H Free T4 1.70 Urine Color Urine Appearance Urine pH Ur Specific [place] Urine Protein Urine Glucose (UA) Urine Ketones Urine Blood Urine Nitrite Urine Bilirubin Urine Urobilinogen Ur Leukocyte Esterase Urine RBC Urine WBC Ur Squamous Epith Cells Urine Bacteria Lab Acknowledgement POC Troponin I 0.04 01/21/23 01/22/23 01/22/23 Unknown 00:26 06:21 WBC 10.76 RBC 4.76 Hgb 13.8 Hct 42.1 MCV 88 MCH 29 MCHC 33 RDW Coeff of Cinda 15.1 Plt Count 255 Neut % (Auto) 71.6 Lymph % (Auto) 18.5 L [place] % (Auto) 8.9 Eos % (Auto) 0.5 Baso % (Auto) 0.2 Neut # (Auto) 7.71 H Lymph # (Auto) 2.00 [place] # (Auto) 1.00 H Eos # (Auto) 0.05 Baso # (Auto) 0.02 Abs Immat Gran (auto) 0.03 Imm/Tot Granulo (auto) 0.3 VBG pH 7.435 H VBG pCO2 36 L VBG pO2 77.6 H VBG HCO3 24 Sodium 147 Potassium 3.5 L Chloride 117 H Carbon Dioxide 24 Anion Gap 6 L BUN 27 Creatinine 0.5 Estimated Creat Clear 31.31 Estimated GFR 91 Glucose 94 Hemoglobin A1c 5.3 Lactate 1.1 Calcium 8.2 L Phosphorus 2.8 Magnesium 2.3 Iron 55 TIBC 202 L % Saturation 27 Total Bilirubin Direct Bilirubin AST ALT Alkaline Phosphatase Troponin I 0.05 H C-Reactive Protein 6.4 H NT-Pro-B Natriuret Pep Total Protein Albumin Triglycerides 119 Cholesterol 197 LDL Cholesterol, Calc 117 H HDL Cholesterol 56 Lipase 86 TSH Free T4 Urine Color Yellow Urine Appearance Clear Urine pH 5.5 Ur Specific [place] 1.020 Urine Protein Negative Urine Glucose (UA) Negative Urine Ketones 1+ A Urine Blood 1+ A Urine Nitrite Negative Urine Bilirubin Negative Urine Urobilinogen 0.2 Ur Leukocyte Esterase Negative Urine RBC 0-2 Urine WBC 0-2 Ur Squamous Epith Cells Few Urine Bacteria None Lab Acknowledgement Test Added POC Troponin I
[2023-01-22] MEDS: SODIUM CHLORIDE 0.9 % (FLUSH) 10 ML SYRINGE 5 ML IVF ×2 (10:45→20:16)
[2023-01-22] MEDS: DIGOXIN 250 MCG/ML inj IV (13:12)
--- NOTE | 2023-01-22 14:58 | PC.SOCIAL ---
Discharge planning: Met with pt and son, Sterling, in room. Introduced social work services and how we assist with discharge planning. Son, Sterling, states his brother Christiano, is the POA and that social worker palliative care needs to speak with him regarding d/c planning. Called Christiano at [phone] who spoke with social worker palliative care regarding pt's current living situation and their plans at discharge. Christiano shared that pt lives in her own home in [place] and that his brother, Sterling, lives with her and is her primary caregiver at home. Pt has qualified for 47 hours a week of paid home care. They have two caregivers who provide care for about 13-20 hours a week and the rest of the care is provided by Sterling. Christiano states he comes to the house about twice a week to relieve Sterling. Christiano shared he is pleased with home care from [facility] but feels pt should receive more skilled home care covered by her insurance. Christiano states he would like her to have weekly testing at home including UTI testing as she gets multiple UTI's. He also believes she would benefit from skin assessments by nursing more frequently as her skin is frail and she bruises easily. Christiano clearly stated they are not interested in placement in any facility and will be taking her home at discharge. child protective services social worker to follow up as needed.
[2023-01-22] MEDS: DIGOXIN 250 MCG/ML inj 125 MCG IV (20:14)
[2023-01-23] VITALS (21 sets, daily range): BP systolic 96–159; BP diastolic 66–94; PULSE 85–99; RESP 14–20; TEMP 36.1–36.9; O2SAT 92–96
[2023-01-23] MEDS: DIGOXIN 250 MCG/ML inj 125 MCG IV (02:10)
--- NOTE | 2023-01-23 02:39 | PC.NURSE ---
Hydrogen Braze Furnace Operator called [employer] service at this time to request order for LR be extended as current order reads to give 2 bags of 1,000 mL fluids each to equal 2,000 mL total. However, pt is NPO and is scheduled for endoscopy later today and therefore needs to continue on IV fluids. Hydrogen Braze Furnace Operator spoke with Jm Castillo who states he will enter order to continue fluids.
[2023-01-23] MEDS: LACTATED RINGERS 1000 ML 1,000 ML 75 ML IV (02:47)
--- NOTE | 2023-01-23 06:41 | PC.NURSE ---
Shift note [id number]: Pt is primarily non-verbal when interacting with staff. She is noted to be able to make eye contact with staff though unable to make needs known due to end stage Alzheimer's disease. Staff therefore have to anticipate needs. Son Christiano has spent the night in room with pt. Staff have been providing oral cares and repositioning Q2H along with checking and changing brief in bed. Pt has been incontinent of urine and has had no BM this shift. IV patent with LR running at 75 mL/hr per order in place. Pt NPO due to scheduled Endoscopy today. Pt has been accepting of cares provided by staff with no combative behaviors noted. Per Preceptor RN, pt currently unable to tolerate oral meds due to swallowing impairment. This was also noted in MD?s note from 01/22/23. ?
[2023-01-23] MEDS: DIGOXIN 250 MCG/ML inj 187.5 MCG IV (09:24)
[2023-01-23] MEDS: SODIUM CHLORIDE 0.9 % (FLUSH) 10 ML SYRINGE 5 ML IVF ×2 (09:35→22:16)
--- NOTE | 2023-01-23 13:12 | PC.NURSE ---
Addendum entered by Chante Comer RN 01/23/23 14:46: Patient to OR for scope @ 1440 Original Note: Shift Summary: Patient resting in bed all of shift, passive with cares. Incontinent at baseline, staff turn and reposition q2h and change brief as needed. Vitals stable and WNL. Son in room and is supportive. Patient NPO, no oral medications. Given one time dose of digoxin, see MAR. Tele shows a-fib, HR 80-100's, vitals stable.
--- NOTE | 2023-01-23 13:43 | P.IMPN_ITS ---
Progress Note: A&P Assessment and plan (1) Atrial fibrillation with rapid ventricular response: Problem details: -new diagnosis -rate control with IV metoprolol and digoxin. -echo done 01/22: Normal LV size, normal thickness. Mildly reduced global systolic function of the left ventricle with an LV EF of 40-50%. Moderate tricuspid regurg. Normal RV function. Of note, the left atrium is normal in size. - not a candidate for DC cardioversion given the uncertainty of when she went into atrial fibrillation with rapid ventricular response Status: Acute (2) Dysphagia: Problem details: -possible distal esophageal obstruction, etiology not yet determined, differential diagnosis including simple versus complex esophageal stricture, ring formation, neoplasm, infection, inflammation. -tentatively scheduled for EGD plus-minus dilatation on 01/23/2023 at [facility] Endoscopy suite. Status: Acute (3) Urinary tract infection: Problem details: -treated empirically for possible UTI on 01/18/2023 with Cipro 250 mg p.o. b.i.d. -stop the ciprofloxacin on 01/21/2023 given urine culture growing out only mixed adriana Status: Acute (4) Dementia due to Alzheimer's disease: Problem details: -patient has advanced disease, requires assist with all 6/6 ADLs--family requesting support with exploring options to continue to care for their mother in their home. Will see if physical therapy, occupational therapy, speech pathology, dietitian, and vp digital marketing social media and crm can help in this regard. Status: Chronic (5) Frailty syndrome in geriatric patient: Status: Chronic Subjective Date Seen: 01/23/23 Interval history: Daily Progress Note - Hospital Medicine Day #: 2 CC: AFib RVR, distal esophageal obstruction, advanced dementia OVERNIGHT UPDATES FROM STAFF & MED, LAB, IMAGING UPDATES Pt has rested better overnight. No acute events. Digoxin loaded for much better HR control. 159/86. Pulse 95. Heart rates have been in the 90s consistently with current treatment Respiratory rate 16. Afebrile. O2 sat 96% on room air Labs not repeated. Blood cultures are negative at 24 hours. I reviewed her admission x-ray and her ER CT abdomen pelvis from 01/18. Objective: Resting comfortably upon my exam Vitals: see above Lungs: Clear. Cardiac: S1S2. Irregularly irregular. Heart rate is around 95 Disposition/Potential discharge - Likely to return to previous living situation. Exam Const: Vital Signs, click to edit/add: Vital Signs - 24 hr 01/22/23 15:00 01/22/23 15:00 01/22/23 15:00 Temperature 97.6 F Pulse Rate Pulse Rate [Left P ulse Oximeter] 94 94 Respiratory Rate 18 18 18 Blood Pressure [Le ft Arm] 151/91 H Pulse Oximetry 93 93 Oxygen Delivery Me thod Room Air Room Air 01/22/23 17:12 01/22/23 20:14 01/22/23 20:28 Temperature 97.9 F 97.9 F Pulse Rate 96 Pulse Rate [Left P ulse Oximeter] 96 Respiratory Rate 16 Blood Pressure [Le ft Arm] 152/93 H Pulse Oximetry 96 Oxygen Delivery Me thod Room Air 01/22/23 23:00 01/22/23 23:00 01/23/23 00:03 Temperature 97.1 F L Pulse Rate Pulse Rate [Left P ulse Oximeter] 94 93 Respiratory Rate 16 16 16 Blood Pressure [Le ft Arm] 157/94 H Pulse Oximetry 93 93 Oxygen Delivery Me thod Room Air Room Air 01/23/23 02:10 01/23/23 02:51 01/23/23 07:31 Temperature 96.9 F L Pulse Rate 86 99 Pulse Rate [Left P ulse Oximeter] 86 Respiratory Rate 16 Blood Pressure [Le ft Arm] 155/79 H Pulse Oximetry 93 Oxygen Delivery Me thod Room Air 01/23/23 08:43 01/23/23 08:47 01/23/23 09:24 Temperature 98.2 F Pulse Rate 95 Pulse Rate [Left P ulse Oximeter] 95 Respiratory Rate 16 16 Blood Pressure [Le ft Arm] 159/94 H Pulse Oximetry 93 93 Oxygen Delivery Me thod Room Air Room Air 01/23/23 11:57 Temperature 97.6 F Pulse Rate Pulse Rate [Left P ulse Oximeter] 95 Respiratory Rate 16 Blood Pressure [Le ft Arm] 159/86 H Pulse Oximetry 96 Oxygen Delivery Me thod Room Air
--- NOTE | 2023-01-23 14:02 | W.ANESCHARGE ---
Anesthesia Charges Start Date/Time Anesthesia Start Date: 01/23/23 Anesthesia Start Time: 15:01 Stop Date/Time Anesthesia Stop Date: 01/23/23 Anesthesia Stop Time: 15:28 Summary Extremes of Age - Over 70 or under 1: MDA
[2023-01-23] MEDS: LACTATED RINGERS 1000 ML 1,000 ML 35 ML IV (15:19)
--- NOTE | 2023-01-23 15:30 | W.ANESCHARGE ---
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
[2023-01-23] MEDS: METOPROLOL TARTRATE 25 MG TABLET PO (18:57)
[2023-01-24 03:00] VITALS: BP 132/77; PULSE 71; RESP 16; TEMP 36.4; O2SAT 93
[2023-01-24] MEDS: LACTATED RINGERS 1000 ML 1,000 ML 35 ML IV (03:19)
[2023-01-24 07:19] LABS: Chloride* 108 mmol/L (96-114)
[2023-01-24 07:20] LABS: Potassium* 3.6 mmol/L (3.6-5.1); Sodium* 140 mmol/L (135-149)
[2023-01-24 07:22] LABS: Anion Gap 7 mEq/L (7-15); Carbon Dioxide* 25 mmol/L (20-32); Creatinine* 0.6 mg/dL (0.5-1.5); Est. Creatinine Clearance* 31.31; Estimated Glomerular Filt Rate 87 ml/min
[2023-01-24 07:23] LABS: Blood Urea Nitrogen* 18 mg/dL (7-30); Calcium* 8.2 mg/dL (8.4-10.6); Glucose* 72 mg/dL (60-115)
--- NOTE | 2023-01-24 07:36 | PC.NURSE ---
Patient pleasant and cooperative with cares. Unable to make needs known. Communicated mostly with yes/no answers. No noted signs of discomfort. Son at bedside tonight. Drank sips of water without any difficulty. VSS. ?
--- NOTE | 2023-01-24 08:00 | CRLHL7_ITS ---
For Patients: As a result of the Century Cures Act, medical imaging exams and procedure reports are released immediately into your electronic medical record. You may view this report before your referring provider. If you have questions, please contact your health care provider. Technique: Single-contrast thin barium esophagram performed in the upright position. Fluoroscopy time 39 seconds. Indication: ESOPHAGEAL FUNCTIONALITY Comparison: CT abdomen 01/18/2023 Findings: No obstruction to the flow of barium noted. Sliding hiatal hernia is present. Decreased esophageal clearance. No stricture or achalasia. 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 No obstruction. Dictated by Reed Chery MD @ 01/24/2023 12:06:34 PM (Electronically Signed)
[2023-01-24 08:10] VITALS: BP 145/77; PULSE 74; PULSE 76; RESP 16; TEMP 36.7; O2SAT 95
[2023-01-24] MEDS: SODIUM CHLORIDE 0.9 % (FLUSH) 10 ML SYRINGE 5 ML IVF (08:15)
[2023-01-24 09:56] VITALS: PULSE 78
[2023-01-24] MEDS: METOPROLOL TARTRATE 25 MG TABLET PO (09:56)
[2023-01-24] MEDS: DONEPEZIL 10 MG TABLET 20 MG PO (09:56)
[2023-01-24] MEDS: DIGOXIN 125 MCG TABLET PO (09:56)
[2023-01-24] MEDS: ACETAMINOPHEN 325 MG TABLET 650 MG PO (09:58)
[2023-01-24 11:25] VITALS: BP 120/76; PULSE 58; RESP 16; TEMP 36.3; O2SAT 94
--- NOTE | 2023-01-24 12:17 | PM.IMPN1 ---
Progress Note: A&P Assessment and plan (1) Atrial fibrillation with rapid ventricular response: Problem details: -new diagnosis -rate control with IV metoprolol and digoxin. -echo done 01/22: Normal LV size, normal thickness. Mildly reduced global systolic function of the left ventricle with an LV EF of 40-50%. Moderate tricuspid regurg. Normal RV function. Of note, the left atrium is normal in size. - not a candidate for DC cardioversion given the uncertainty of when she went into atrial fibrillation with rapid ventricular response Status: Acute (2) Dysphagia: Problem details: -possible distal esophageal obstruction, etiology not yet determined, differential diagnosis including simple versus complex esophageal stricture, ring formation, neoplasm, infection, inflammation. -tentatively scheduled for EGD plus-minus dilatation on 01/23/2023 at [facility] Endoscopy suite. Status: Acute (3) Urinary tract infection: Problem details: -treated empirically for possible UTI on 01/18/2023 with Cipro 250 mg p.o. b.i.d. -stop the ciprofloxacin on 01/21/2023 given urine culture growing out only mixed adriana Status: Acute (4) Dementia due to Alzheimer's disease: Problem details: -patient has advanced disease, requires assist with all 6/6 ADLs--family requesting support with exploring options to continue to care for their mother in their home. Will see if physical therapy, occupational therapy, speech pathology, dietitian, and geriatric social worker can help in this regard. 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 No obstruction. Pt has rested better overnight. No acute events. Digoxin loaded for much better HR control. 159/86. Pulse 95. Heart rates have been in the 90s consistently with current treatment Respiratory rate 16. Afebrile. O2 sat 96% on room air Labs not repeated. Blood cultures are negative at 24 hours. I reviewed her admission x-ray and her ER CT abdomen pelvis from 01/18. Objective: Resting comfortably upon my exam Vitals: see above Lungs: Clear. Cardiac: S1S2. Irregularly irregular. Heart rate is around 95 Disposition/Potential discharge - Likely to return to previous living situation. Exam Const: Vital Signs, click to edit/add: Vital Signs - 24 hr 01/23/23 15:00 01/23/23 15:00 01/23/23 15:00 Temperature 97.4 F L Pulse Rate Pulse Rate [Left P ulse Oximeter] 97 98 Respiratory Rate 16 16 16 Blood Pressure Blood Pressure [Le ft Arm] 129/80 Blood Pressure [Ri ght Arm] Pulse Oximetry 95 95 Oxygen Delivery Me thod Room Air Room Air 01/23/23 15:00 01/23/23 15:25 01/23/23 15:30 Temperature 97.4 F L Pulse Rate 95 90 99 Pulse Rate [Left P ulse Oximeter] Respiratory Rate 16 16 Blood Pressure 110/66 96/66 Blood Pressure [Le ft Arm] Blood Pressure [Ri ght Arm] Pulse Oximetry 93 93 Oxygen Delivery Me thod Room Air Room Air 01/23/23 15:35 01/23/23 15:40 01/23/23 15:45 Temperature Pulse Rate 89 90 93 Pulse Rate [Left P ulse Oximeter] Respiratory Rate 14 14 14 Blood Pressure 113/78 116/71 133/82 Blood Pressure [Le ft Arm] Blood Pressure [Ri ght Arm] Pulse Oximetry 92 92 93 Oxygen Delivery Me thod Room Air Room Air Room Air 01/23/23 15:50 01/23/23 15:55 01/23/23 16:06 Temperature 97.2 F L 97.7 F Pulse Rate 94 85 Pulse Rate [Left P ulse Oximeter] 98 Respiratory Rate 16 16 16 Blood Pressure 132/77 135/80 Blood Pressure [Le ft Arm] 147/77 H Blood Pressure [Ri ght Arm] Pulse Oximetry 94 95 95 Oxygen Delivery Me thod Room Air Room Air Room Air 01/23/23 16:30 01/23/23 19:00 01/23/23 21:56 Temperature 97.4 F L 97.7 F 97.7 F Pulse Rate Pulse Rate [Left P ulse Oximeter] 98 97 Respiratory Rate 16 16 Blood Pressure Blood Pressure [Le ft Arm] 129/80 125/70 Blood Pressure [Ri ght Arm] Pulse Oximetry 95 94 Oxygen Delivery Me thod Room Air Room Air 01/23/23 23:00 01/23/23 23:00 01/24/23 03:00 Temperature 98.4 F 97.6 F Pulse Rate Pulse Rate [Left P ulse Oximeter] 94 71 Respiratory Rate 20 16 Blood Pressure Blood Pressure [Le ft Arm] Blood Pressure [Ri ght Arm] 141/70 H 132/77 Pulse Oximetry 94 94 93 Oxygen Delivery Me thod Room Air Room Air Room Air 01/24/23 08:10 01/24/23 08:10 01/24/23 08:10 Temperature Pulse Rate 74 Pulse Rate [Left P ulse Oximeter] 76 Respiratory Rate 16 16 Blood Pressure Blood Pressure [Le ft Arm] Blood Pressure [Ri ght Arm] Pulse Oximetry 95 Oxygen Delivery Me thod Room Air 01/24/23 08:10 01/24/23 09:56 Temperature 98.1 F Pulse Rate 78 Pulse Rate [Left P ulse Oximeter] 76 Respiratory Rate 16 Blood Pressure Blood Pressure [Le ft Arm] 145/77 H Blood Pressure [Ri ght Arm] Pulse Oximetry 95 Oxygen Delivery Ma thod Room Air Labs Labs: Laboratory Results - last 24 hr 01/24/23 06:35 Sodium 140 Potassium 3.6 Chloride 108 Carbon Dioxide 25 Anion Gap 7 BUN 18 Creatinine 0.6 Estimated Creat Clear 31.31 Estimated GFR 87 Glucose 72 Calcium 8.2 L
--- NOTE | 2023-01-24 13:28 | PM.ANPOST ---
Post Anesthesia Note Post Anesthesia Note Patient seen: Inpatient Respiratory Status: adequate Cardiovascular Status: adequate Mental Status: baseline Pain: adequate Temp: baseline Anesthetic awareness: N/A Complications: none Follow care: none
[2023-01-24 15:00] VITALS: BP 126/58; PULSE 50; RESP 16; TEMP 36.4; O2SAT 94
--- NOTE | 2023-01-24 15:23 | P.DS_ITS ---
DS: Providers Provider Date Seen: 01/24/23 Date of admission: 01/22/23 09:11 Primary care physician: Lucille Toney MD Admitting Clinician: Maurilio Garg MD Consults: 01/22/23 00:26 Consult to Nutrition [CONS] Routine Comment: Reason for consult:: Miscellaneous Consult to Occupational Therapy [CONS] Routine Comment: Reason(s) for OT Consult:: Evaluate and Treat Any Restrictions?:: No Restrictions Consult to Physical Therapy [CONS] Routine Comment: Reason(s) for PT Consult:: Evaluate and Treat Any Restrictions?:: No Restrictions Consult to Supervisor Compressed Yeast [CONS] Routine Comment: Reason for Consult:: Discharge Planning Needs Consult to Speech Therapy [CONS] Routine Comment: Reason(s) for Speech Consult:: Swallowing Difficulty 01/22/23 03:20 Consult to Physical Therapy [CONS] Routine Comment: Reason(s) for PT Consult:: Gait Training Any Restrictions?:: No Restrictions Attending Physician on discharge: Umm Ambrocio MD [facility] Date of Discharge: 01/24/23 DS: Diagnosis Discharge Diagnosis (1) Atrial fibrillation: Status: Acute Problem details: -rate control. -long discussion regarding anticoagulation. Patient's risks outweighed benefits. Family agreed not to start anticoagulation -metoprolol and digoxin used for rate control (2) Dysphagia: Status: Resolved Problem details: -EGD was reassuring. Food bolus that had remained in the esophagus had passed spontaneously. Biopsies are pending but there was no obvious pathology. 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 -[facility] to consult in patient's home after discharge DS: Summary Hospital Course Hospital Course: FINAL DIAGNOSIS/FOLLOW UP ISSUES: 1. program services planner to coordinate a home hospice evaluation secondary to advanced dementia of the Alzheimer's subtype 2. Dysphagia - EGD and esophagram were reassuring. Speech pathology recommended 3. Atrial fibrillation-no anticoagulation was the family's decision. Metoprolol and digoxin for rate control. BRIEF HOSPITAL COURSE: Patient was admitted for 4 days. Synopsis of acute inpatient issues are outlined above. Chronic medical conditions with notable findings outlined above. DISCHARGE MEDICATIONS: See Reconciled list - SIGNIFICANT CHANGES: Adding metoprolol and digoxin as outlined above Hospice, if admitted, can go through home med list Specific instructions to the patient and follow-up are outlined below. REVIEW OF SYSTEMS No new chest pain or dyspnea Pain controlled No voiding difficulties Tolerating diet challenge PHYSICAL EXAM: CONSTITUTIONAL: Sleeping peacefully. VITAL SIGNS: see record. HEENT: Normocephalic, atraumatic. PERRL, EOMI, conjunctivae pink, no scleral icterus. Ears and nose externally normal. Pharynx normal. NECK: No JVD. No carotid bruit, no thyromegaly, no adenopathy. CHEST: Clear to auscultation bilaterally. HEART: S1 and S2 normal. Edema ABDOMEN: Soft, nontender. Normal bowel sounds. MUSCULOSKELETAL: No gross joint deformity or swelling. NEURO: Cranial nerves intact. Grossly intact. No asymmetric findings. SKIN: No rashes, petechiae, concerning changes PSYCHIATRIC: Mood euthymic. DISPOSITION: Home with family Time spent on discharge 37 minutes. Time Spent with Patient Time attestation: Total time spent providing and/or coordinating discharge services: Exam Const: Vital Signs, click to edit/add: Vital Signs - 24 hr 01/23/23 15:25 01/23/23 15:30 01/23/23 15:35 Temperature 97.4 F L Pulse Rate 90 99 89 Pulse Rate [Left P ulse Oximeter] Respiratory Rate 16 16 14 Blood Pressure 110/66 96/66 113/78 Blood Pressure [Le ft Arm] Blood Pressure [Ri ght Arm] Pulse Oximetry 93 93 92 Oxygen Delivery Me thod Room Air Room Air Room Air 01/23/23 15:40 01/23/23 15:45 01/23/23 15:50 Temperature Pulse Rate 90 93 94 Pulse Rate [Left P ulse Oximeter] Respiratory Rate 14 14 16 Blood Pressure 116/71 133/82 132/77 Blood Pressure [Le ft Arm] Blood Pressure [Ri ght Arm] Pulse Oximetry 92 93 94 Oxygen Delivery Me thod Room Air Room Air Room Air 01/23/23 15:55 01/23/23 16:06 01/23/23 16:30 Temperature 97.2 F L 97.7 F 97.4 F L Pulse Rate 85 Pulse Rate [Left P ulse Oximeter] 98 98 Respiratory Rate 16 16 16 Blood Pressure 135/80 Blood Pressure [Le ft Arm] 147/77 H 129/80 Blood Pressure [Ri ght Arm] Pulse Oximetry 95 95 95 Oxygen Delivery Me thod Room Air Room Air Room Air 01/23/23 19:00 01/23/23 21:56 01/23/23 23:00 Temperature 97.7 F 97.7 F 98.4 F Pulse Rate Pulse Rate [Left P ulse Oximeter] 97 94 Respiratory Rate 16 20 Blood Pressure Blood Pressure [Le ft Arm] 125/70 Blood Pressure [Ri ght Arm] 141/70 H Pulse Oximetry 94 94 Oxygen Delivery Me thod Room Air Room Air 01/23/23 23:00 01/24/23 03:00 01/24/23 08:10 Temperature 97.6 F Pulse Rate 74 Pulse Rate [Left P ulse Oximeter] 71 Respiratory Rate 16 Blood Pressure Blood Pressure [Le ft Arm] Blood Pressure [Ri ght Arm] 132/77 Pulse Oximetry 94 93 Oxygen Delivery Me thod Room Air Room Air 01/24/23 08:10 01/24/23 08:10 01/24/23 08:10 Temperature 98.1 F Pulse Rate Pulse Rate [Left P ulse Oximeter] 76 76 Respiratory Rate 16 16 16 Blood Pressure Blood Pressure [Le ft Arm] 145/77 H Blood Pressure [Ri ght Arm] Pulse Oximetry 95 95 Oxygen Delivery Me thod Room Air Room Air 01/24/23 09:56 01/24/23 11:25 Temperature 97.3 F L Pulse Rate 78 Pulse Rate [Left P ulse Oximeter] 58 L Respiratory Rate 16 Blood Pressure Blood Pressure [Le ft Arm] 120/76 Blood Pressure [Ri ght Arm] Pulse Oximetry 94 Oxygen Delivery Me thod Room Air DS: Data Data Completed and Pending Labs on day of discharge: Labs from last 24 hours 01/24/23 06:35 Sodium 140 Potassium 3.6 Chloride 108 Carbon Dioxide 25 Anion Gap 7 BUN 18 Creatinine 0.6 Estimated Creat Clear 31.31 Estimated GFR 87 Glucose 72 Calcium 8.2 L Preliminary micro results at discharge 01/21/23 19:28 Blood Culture - Preliminary Blood NO GROWTH AFTER 48 HOURS 01/21/23 19:28 Blood Culture - Preliminary Blood NO GROWTH AFTER 48 HOURS Discharge Plan Discharge Disposition: Home w/ Parent or Adult Date of Admission: 01/22/23 09:11 Attending Provider on Discharge: Umm Ambrocio Primary Care Provider: Lucille Toney Anticipated Discharge Date/Time: 01/24/23 15:19 Discharge Medications: New digoxin 125 mcg (0.125 mg) Tablet 125 mcg PO DAILY Qty: 30 0RF metoprolol tartrate 25 mg Tablet 12.5 mg PO BID Qty: 30 0RF Continued cholecalciferol (vitamin D3) [Vitamin D3] 25 mcg (1,000 unit) capsule 25 mcg PO DAILY simvastatin 20 mg tablet 20 mg PO HS donepezil 10 mg tablet 20 mg PO QAM amlodipine 5 mg tablet 5 mg PO DAILY Qty: 90 0RF meloxicam 15 mg tablet 15 mg PO DAILY Qty: 90 3RF Discontinued ciprofloxacin HCl 250 mg tablet 250 mg PO BID Discharge Orders: Discharge Order (Routine); Ordered 01/24/23 Ordered By: Umm Ambrocio Patient Education: Metoprolol (By mouth), Digoxin (By mouth) Additional Instructions: 1. [facility] to consult at patient's home 2. While patient remains in AFIB - we have controlled her heartrate with two new medications, digoxin and metoprolol. those are sent to your pharmacy. 3. No further concerns regarding UTI 4. For eating, I'd recommend minced and moist foods and regular liquids. Activity Level: Activity as Tolerated Discharge Diet: Regular and Other Diet Detail: Minced and moist foods, regular liquids Forms: [facility] Info Instructions
[2023-01-24 15:35] VITALS: PULSE 50
--- NOTE | 2023-01-24 15:59 | PC.SOCIAL ---
Addendum entered by DOUG Staley 01/24/23 16:49: Discharge planning: meat counter worker faxed D/C summary to Anneliese at [facility] at 4:47pm. Social work to follow-up as needed. Original Note: Discharge planning: meat counter worker met with pt and son, Christiano. They are interested in Hospice Services in their home for pt; however, they had concerns that Hospice Services would/might affect their [employer]/WET END HELPER service hours. meat counter worker offered to check into this with their county social service assistant, Kina Newman. Kina stated that getting Hospice services will not affect their [employer] Helper Care/WET END HELPER service hours. meat counter worker relayed this information to pt and her son, Christiano, and they chose to go through [facility]. meat counter worker faxed over a referral packet to [facility]. meat counter worker also talked with [facility] over the phone and they reviewed the intake packet with this worker and also spoke to the pt's nurse about supplies that maybe needed at home, if any. Hospitalist plans to discharge pt home today between 4pm-5pm. Social work to follow-up as needed.
--- NOTE | 2023-01-24 18:56 | PC.NURSE ---
Nadine bateman suggests minced & moisit. DC instructions given to Christiano carrillo verbally and in writing. Pt transferred home with EMS to start [facility] under the care of 2 sons @1800
== END 2023-01-24 18:00 | disposition home or self-care (01) | DRG 309 ==
LOC: ED 17:19 → MEDSURG 23:35
PROVIDERS: Family Medicine; Surgery; Admitting Provider Internal Medicine; Emergency Provider Emergency Medicine; PCP Family Medicine; Visit Provider Internal Medicine
PROC: 0DJ08ZZ Inspection of Upper Intestinal Tract, Via Natural or Artificial Opening Endoscopic (ICD-10-PCS; principal; 2023-01-23 13:30)
DX: I48.20 Chronic atrial fibrillation, unspecified (principal); E44.0 Moderate protein-calorie malnutrition; Z68.1 Body mass index [BMI] 19.9 or less, adult; E86.0 Dehydration; F02.80 Dementia in other diseases classified elsewhere, unspecified severity, without behavioral disturbance, psychotic disturbance, mood disturbance, and anxiety; G30.9 Alzheimer's disease, unspecified; R13.10 Dysphagia, unspecified; R54 Age-related physical debility; M15.9 Polyosteoarthritis, unspecified; Z79.1 Long term (current) use of non-steroidal anti-inflammatories (NSAID)
CPT/HCPCS: 00731; 36415; 43239; 71045; 74220; 80048; 80061; 80076; 81001; 82803; 83036; 83540; 83550; 83605; 83690; 83735; 83880; 84100; 84439; 84443; 84484; 85025; 86140; 87040; 88305; 88312; 88341; 88342; 92610; 93005; 93306; 94761; 97162; 97165; 97530; 99100; 99284; 99285; G0378; A9270; J0330; J1160; J1650; J2371; J2704; J3010; J7030; J7120

== ENCOUNTER 2023-01-24 17:54 | Outpatient (CLI) | payer MEDICARE, MEDICAID, SELFPAY | END 2023-01-24 17:55 | disposition home or self-care (01) | LOC: AMB 01-27 09:21 | PROVIDERS: PCP Family Medicine; Visit Provider Family Medicine | DX: F03.90 Unspecified dementia, unspecified severity, without behavioral disturbance, psychotic disturbance, mood disturbance, and anxiety (principal) | CPT/HCPCS: A0425; A0428 ==

== ENCOUNTER 2023-02-03 23:20 | Outpatient (CLI) | payer MEDICARE, MEDICAID, SELFPAY | END 2023-02-03 23:21 | disposition home or self-care (01) | LOC: AMB 02-04 13:03 | PROVIDERS: PCP Family Medicine; Visit Provider Family Medicine | DX: S89.92XA Unspecified injury of left lower leg, initial encounter (principal); W18.39XA Other fall on same level, initial encounter; Y92.003 Bedroom of unspecified non-institutional (private) residence as the place of occurrence of the external cause | CPT/HCPCS: A0425; A0427 ==

== ENCOUNTER 2023-02-03 23:52 | Emergency (ER) | payer MEDICARE, MEDICAID, SELFPAY ==
[2023-02-04 00:01] VITALS: BP 152/80; PULSE 55; RESP 16; TEMP 36.5; O2SAT 92
--- NOTE | 2023-02-04 00:23 | CRLHL7_ITS ---
For Patients: As a result of the Century Cures Act, medical imaging exams and procedure reports are released immediately into your electronic medical record. You may view this report before your referring provider. If you have questions, please contact your health care provider. Indication: Deformity after fall Technique: Frontal and lateral views of the left femur Comparison: None Findings: Bones: Osteopenia. Status post left knee arthroplasty. There is the comminuted displaced fracture of the distal diaphysis of the femur which does involve the femoral prosthesis. There is an there is 122 degrees apex anterior displacement of the distal femur. Joint spaces: Moderate degenerative changes in the left hip joint. Soft tissues: High-density material in the pelvis may represent residual barium within colonic diverticula. Impression: Comminuted, displaced fracture of the distal diaphysis of the femur which appears to involve the femoral component of the left hip arthroplasty. Dictated by Lelo Rodriguez MD @ 02/04/2023 2:40:14 AM (Electronically Signed)
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
[2023-02-04] MEDS: ACETAMINOPHEN 325 MG TABLET 650 MG PO (01:06)
[2023-02-04 02:36] VITALS: BP 114/58; PULSE 49; RESP 16; TEMP 36.6; O2SAT 94
--- NOTE | 2023-02-04 02:53 | ED.NURSE ---
zainab Charge nurse at [facility] given report on patient.
== END 2023-02-04 02:54 | disposition other institution (70) ==
PROVIDERS: Emergency Provider Family Medicine; PCP Family Medicine
DX: S72.442A Displaced fracture of lower epiphysis (separation) of left femur, initial encounter for closed fracture (principal); M97.02XA Periprosthetic fracture around internal prosthetic left hip joint, initial encounter; W19.XXXA Unspecified fall, initial encounter
CPT/HCPCS: 73552; 95992; 99284; A9270

== ENCOUNTER 2023-02-04 02:45 | Outpatient (CLI) | payer MEDICARE, MEDICAID, SELFPAY | END 2023-02-04 02:46 | disposition home or self-care (01) | LOC: AMB 02-07 11:19 | PROVIDERS: PCP Family Medicine; Visit Provider Family Medicine | DX: S72.402S Unspecified fracture of lower end of left femur, sequela (principal) | CPT/HCPCS: A0425; A0428 ==

== ENCOUNTER 2023-11-19 16:30 | Outpatient (CLI) | payer MEDICARE, MEDICAID, SELFPAY ==
--- OUTSIDE RECORDS SUMMARY | 2023-11-22 18:49 | XMS_ITS | Clinical Summary ---
Author Organization [facility] Address [place], [place] [address] Care Team Providers Care Shaker Out Name Role Phone Lucille Toney MD Primary Care Provider + Allergies Active Allergy Reactions Criticality Noted Date Comments Erythromycin Hives 05/19/2010 Penicillins Hives 05/19/2010 Oxycodone-Acetaminophen 05/19/2010 Dizzy and disoriented Medications Medication Sig Dispensed Refills Start Date End Date Status simvastatin (ZOCOR) 20 mg tablet Take 1 tablet by mouth at bedtime. 0 01/04/2010 Active meloxicam 15 mg tablet Take 1 tablet by mouth once daily. 0 05/19/2010 Active multivitamin (MVI) tablet Take 1 tablet by mouth once daily. 0 10/26/2015 Active donepeziL (ARICEPT) 10 mg tablet TK 2 TS PO IN THE MORNING 12/14/2019 Active amLODIPine (NORVASC) 5 mg tablet TK 1 T PO D 04/21/2019 Active medication order composerIndications: Urinary retention Catheter in place - please provide catheter care and catheter changes every 4-6 weeks until patient has increased mobility. 1 Device 12/22/2019 Active nitrofurantoin macrocrystaL (MACRODANTIN) 50 mg capsuleIndications:U rinary tract infection without hematuria, site unspecified Take 1 capsule by mouth once daily. 30 capsule 5 02/16/2020 Active betamethasone dipropionate 0.05% (DIPROSONE LOTION 0.05%) lotionIndications:Martinez bacute vaginitis Apply topically to affected area(s) 2 times daily. 1 Bottle 03/29/2020 Active Active Problems Problem Noted Date Diagnosed Date HTN (hypertension) 02/21/2012 Senile osteoporosis 02/21/2012 Hyperlipidemia 02/21/2012 DJD (degenerative joint disease) 02/21/2012 Resolved Problems Problem Noted Date Diagnosed Date Resolved Date Tibia/fibula fracture 02/21/20122015 Overview (02/21/2012): s/p ORIF 02/05/12 Immunizations Name Administration Dates Next Due Influenza, High-dose Inactivated 01/17/2015 Pneumococcal Poly,23-Valent (Pneumovax) 07/15/19 10 Pneumococcal conj 13-Valent (Prevnar 13) 014 Tdap 01/17/2013 Zoster (Zostavax-ZVL, live) 05/10/2015 Social History Tobacco Use Types Packs/Day Years Used Date Smoking Tobacco: Never Smokeless Tobacco: Never Tobacco Cessation:Counseling Given: Yes Alcohol Use Standard Drinks/Week Comments Not Currently 0 (1 standard drink = 0.6 oz pur e alcohol) rarely Sex and Gender Information Value Date Recorded Sex Assigned at Not on file Gender Identity Not on file Sexual Orientation Not on file Obstetrics History Last Filed Vital Signs Vital Sign Reading Time Taken Comments Blood Pressure 111/69 03/22/2020 11:51 AM WASHER CARCASS Pulse 77 03/22/2020 11:51 AM WASHER CARCASS Temperature 37.1 ??C (98.8 ??F) 06/30/2018 11:30 AM C DT Respiratory Rate 16 12/22/2019 1:44 PM WASHER CARCASS Oxygen Saturation 98% 03/22/2020 11:51 AM WASHER CARCASS Inhaled Oxygen Concentration - - Weight 58.7 kg (129 lb 4.8 oz) 06/30/2018 11:30 AM CDT Height 162.6 cm (5' 4.02) 11/03/2015 12:59 PM C DT Body Mass Index 22.18 11/03/2015 12:59 PM CDT Plan of Treatment Health Maintenance Due Date Last Done Comments DEXA/DXA scan for age 65+ 08/23/2000 Medicare Wellness for age 65+ 08/23/2000 RSV vaccine for adults or pr egnancy (1 - 1-dose 75+ series) 08/23/2010 Zoster (shingles) series for age 50+ (2 of 3) 07/05/2015 05/10/2015 BMI (ht and wt on same day) for age 18+ 11/02/2016 0 11/03/2015, 11/02/2015 Depression screening for age 12+ 11/02/2016 11/03/19 16 Tetanus booster 01/17/2023 01/17/2013 COVID-19 vaccine series ( season) 2023 Influenza for age 65+ 10/19/2023 01/17/2015 Tdap Completed 01/17/2013 Pneumococcal series for age 65+ Completed , 07/14/2009 Care Teams Shaker Out Relationship Specialty Start Date End Date Lucille Toney MD [address] [place] [address] PCP - General Family Practice 12/22/19
--- OUTSIDE RECORDS SUMMARY | 2023-11-22 18:49 | XMS_ITS | Continuity of Care Document ---
Author Organization [facility] Address [address] [address] [place] [address] Phone Care Team Providers Care Track Service Person Name Role Phone Link Wild MCCORMACK Unavailable [...] two tablets by mouth daily - Active [id number] C-Mn 750 mg-600 mg-55 mg-5 mg Tab Take two tablets by mouth daily - Active Procedures Procedure Date Colonoscopy Flex; W/bx 1/mx Level Iv-surg Path Gross/micro 11 Colonoscopy Flex; W/bx 1/mx Advance Directives Directive Yes / No Effective Date File Name No Information Encounters Encounter Description Practice Location Reason(s) For Visit Diagnoses Date Provider Providers Copied on Encounter [facility], [address] [address], [place], [id number], [place] tel:[phone] [facility] No Information [address] Tomas Rome. [address] [facility], [facility] [address], [facility] [place], [place], [id number] , [place]. tel: [phone] Referring Provider: Referral Self, USE FOR SELF REFERRALS. [facility], [address] [address], [place], [id number], [place] tel:[phone] [facility] Diverticulosis Of ColonBenign Neoplasm ColonDiarrheaDive rticulosis Of Colon 1 Brando Jones. [address] [facility], [facility] [address], [facility] [place], [id number] , [place]. tel: [phone] [facility], [address] [address], [place], [id number], [place] tel:[phone] [facility] Colon Cancer ScreeningDivertic ulosis Of Colon 7 Skylar Baker. [address] [facility], [facility] [address], [facility] [place], [id number] , [place]. tel: [phone] Family History Family Member Type Diagnosis Age At Onset No Information Payers Payer name Insurance type Covered green party ID Authoriza tion(s) No Information Social [...]
== END 2023-11-19 16:31 | disposition home or self-care (01) ==
LOC: AMB 11-22 18:47
PROVIDERS: PCP Family Medicine; Visit Provider Emergency Medicine Emergency Medical Services
DX: F03.90 Unspecified dementia, unspecified severity, without behavioral disturbance, psychotic disturbance, mood disturbance, and anxiety (principal); Z74.01 Bed confinement status
CPT/HCPCS: A0425; A0429

== ENCOUNTER 2023-11-19 16:52 | Inpatient (IN) | payer MEDICARE, MEDICAID, SELFPAY ==
[2023-11-19 16:58] VITALS: BP 144/62; PULSE 62; RESP 16; TEMP 36.2; O2SAT 96; BMI 21.8
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
--- NOTE | 2023-11-19 17:51 | ED.NURSE ---
@ 1730, pt transport to floor delayed due to Med/Surg requesting COVID results prior to admission.
[2023-11-19 17:53] LABS: PCR FLU A Negative PCR FLU A (Negative); PCR FLU B Negative PCR FLU B (Negative); PCR RSV Negative PCR RSV (Negative); SARS PCR* Negative SARS-CoV-2 (Negative)
--- NOTE | 2023-11-19 18:10 | ED.NURSE ---
Pt was in a blue hospital gown upon arrival to ER, she was changed into this blue hospital gown by EMS and social work case manager at scene before transport to hospital.
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
[2023-11-19 18:22] VITALS: BP 161/86; PULSE 70; RESP 16; TEMP 36.5; O2SAT 95; BMI 13.4
[2023-11-19 19:00] VITALS: BP 150/80; PULSE 61; RESP 16; TEMP 35.9; O2SAT 98
--- NOTE | 2023-11-19 19:37 | PC.NURSE ---
son Ilene, was calling about up date and visiting his mom. called to court appointed guardian Maria Ines. no answer and left a message. called ilene and updated him, that I, was not able to talk to her guardian about him visiting. ilene was ok with this information. he is ok with not visiting jael. told him to call [phone] am tomorrow and hopefully we will have more information about visiting and giving out information. told ilene that his mom close to the desk and we will take care of her, and make sure she is doing good. med/surg director was called and updated.
[2023-11-19 19:58] VITALS: RESP 16; O2SAT 98
[2023-11-19] MEDS: METOPROLOL TARTRATE 25 MG TABLET 12.5 MG PO (20:43)
[2023-11-19] MEDS: ACETAMINOPHEN 650 MG TABLET ER 1300 MG PO (20:43)
[2023-11-19] MEDS: SIMVASTATIN 20 MG TABLET PO (20:44)
[2023-11-19] MEDS: SODIUM CHLORIDE 0.9 % (FLUSH) 10 ML SYRINGE 5 ML IVF (20:45)
[2023-11-19 22:28] VITALS: BP 151/73; PULSE 59; RESP 16; TEMP 36.6; O2SAT 95
[2023-11-19] MEDS: MELATONIN 3 MG TABLET PO (23:22)
[2023-11-20] VITALS (7 sets, daily range): BP systolic 114–155; BP diastolic 58–110; PULSE 49–60; RESP 16; TEMP 36–36.1; O2SAT 92–94; BMI 13.7
--- NOTE | 2023-11-20 06:03 | PC.NURSE ---
Shift note: Pt continue to be confuse. Picking everything around her including Mepilex applied to wounds. Attempted several times to self transfer but bed alarm has been on throughout the shift. Pelvic transfer to bedside commode. Pt has several wounds scattered over the arm and legs at different levels of healing. Incontinence to both bowel and bladder. Pt had difficulty falling asleep. Melatonin 3mg given as prescribed which appeared effective.
[2023-11-20] MEDS: OMEPRAZOLE 20 MG CAPSULE DR PO (07:46)
[2023-11-20] MEDS: ACETAMINOPHEN 650 MG TABLET ER 1300 MG PO ×2 (09:22→20:51)
[2023-11-20] MEDS: AMLODIPINE 5 MG TABLET PO (09:23)
[2023-11-20] MEDS: DONEPEZIL 10 MG TABLET PO (09:23)
[2023-11-20] MEDS: DIGOXIN 125 MCG TABLET PO (09:24)
[2023-11-20] MEDS: METOPROLOL TARTRATE 25 MG TABLET 12.5 MG PO ×2 (09:24→20:51)
--- NOTE | 2023-11-20 11:58 | PC.SOCIAL ---
Addendum entered and electronically signed by DOUG Staley 11/20/23 16:32: Discharge planning: As of 4:27pm there were no major updates from the guardian other then she is working on the case and is in contact with [facility] and pt's [facility] APS worker, Maria Ines, about next steps/planning. The guardian has also talked to pt's son Sterling several times about not being able to visit his mother in person at the hospital and not making repeated phone calls to Med/Surg for updates from the nursing staff. Social work to follow-up as needed. Addendum entered and electronically signed by DOUG Staley 11/20/23 16:20: Discharge planning: The signed forms were received back from the guardian and sent to the charge nurse for placement in pt's chart. Social work to follow-up as needed. Addendum entered and electronically signed by DOUG Staley 11/20/23 16:17: Discharge planning: deck worker assisted with explaining The Important Message from Medicare form for inpatient status to the pt's guardian, Christiano, over the phone and obtained verbal consent for the form. deck worker also explained the Observation Status Notice to pt's guardian over the phone and that the pt was first in observation when she came to the hospital, but now is changing to inpatient status. deck worker obtained verbal consent from the guardian for the Observation Status Notice form, as well. deck worker also sent these forms to the guardian via secure email to sign and return as soon as she is able. For now, this worker wrote that this worker obtained verbal consent on each form and a copy was put in the pt's chart. The charge nurse on duty is aware of this. Social work to follow-up as needed. Original Note: Discharge planning: Pt is here at the hospital on a court order for emergency guardianship through [facility] Adult [facility]. Pt's Adult Protection Construction Project Engineer is Maria Ines Cotto #[phone]. Pt's appointed Guardian is Anilbrook Spain through [employer]. Anilbrook's phone number is #[phone]. Pt is also a pt of [facility] and is not here at the hospital on respite care. deck worker spoke to [place] in a conference call and as of right now there is not a final plan for the pt. Christiano is still sorting out details of the emergency guardianship. For right now, per Christiano, there are to be no physical visits from the pt's two sons, Sterling Gunter and Christiano Gunter. Pt's daughter, Karli Gunter, may come to the hospital for a physical visit. All three of pt's children are able to call the hospital and get basic updates/information from the nursing staff. Christiano will call all three children individually and give them this information. deck worker updated the charge nurse on duty. The charge nurse will also let the computer help desk specialist know and give a heads up to the hospital security team. Nelly Varner is the pt's home health care case manager through [facility] and reached out to our Hospital Foot Piece Assembler to ask if the hospital would sign a respite contract with them for this case. The [facility] is not able to do that. Nelly shared that [facility] has a contract with [facility] in [place] for respite care and Nelly was going to reach out to pt's guardian, Christiano, to talk about a possible transfer to that hospital for respite or maybe possibly a SNF that [facility] is also contracted with for respite. Pt may not need hospital level care. As of right now, [facility], will be keeping the pt open with their services for a few days(they are aware they are responsible for the pt's hospital bill on those days) until they know if the pt will be able to transfer to another facility for respite care. Social work to follow-up as needed.
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
[2023-11-20] MEDS: polyethylene glycoL 3350 17 GM PACK PO (19:36)
[2023-11-20] MEDS: SENNOSIDES/DOCUSATE TABLET PO (19:36)
--- NOTE | 2023-11-20 19:40 | PC.NURSE ---
Shift Note: Patient unable to answer questions but occasionally smiles at internal communications writer. Cooperative with cares and cleared to utilize EZ-stand with PT. She was given a shower today and required total assistance. Pt had a large, very hard BM while sitting in the shower chair. Scattered wounds were cleansed, dried, and covered with tegaderm or telfa/kerlix. Wound consult placed and Wound care center notified. Lotion applied to intact areas of shoulders, arms, back, and legs. Pt able to independently feed herself 100% of her breakfast tray. She appears to enjoy the Premier Protein drinks in vanilla and has had 2 throughout the day. No evidence swallowing issues, she appears to tolerate mechanical soft diet very well. Barrier cream applied to stage II ulcer in the coccyx region and heel cushions appled. Son Sterling called this evening for an update, he stated he wanted to make sure she was given her Omeprazole. Sterling was given a telephone update on the patient per social work/guardian guidelines.
[2023-11-20] MEDS: DOCUSATE SODIUM 100 MG CAPSULE PO (20:50)
[2023-11-20] MEDS: SIMVASTATIN 20 MG TABLET PO (20:50)
[2023-11-21] VITALS (7 sets, daily range): BP systolic 126–135; BP diastolic 57–65; PULSE 48–79; RESP 16; TEMP 35.9–36.6; O2SAT 90–98
--- NOTE | 2023-11-21 06:29 | PC.NURSE ---
Shift note: Pt is turned and reposition Q2h. Mepilex and dressings to the wounds are clean and dry. Pt had 1 small soft BM. Pt had adequate sleep. Vitally stable.
--- NOTE | 2023-11-21 12:52 | P.IMCN_ITS ---
Date of Consult Consult date: 11/20/23 Requesting Physician: Hospitalist Primary Care Provider: Lucille Toney MD Consult Narrative Reason for consult: Multiple skin tears in different stages of healing along with bruising Narrative: Susan Gunter is a 88 year old female female brought to the hospital on a court order for protection. Wound care was asked to consult on this patient due to multiple wounds in different stages of healing. Both upper and lower extremities. Multiple bruises throughout upper and lower extremities. She is unaccompanied today during my assessment. Patient is sleeping/nonverbal at visit. It does appear from hospitalist notes she is supported by [facility]. Review of Systems Status of ROS: Reports: 6 or more systems reviewed and unremarkable except as noted in History and below [facility] Medical History (Updated 11/21/23 @ 13:08 by Maurilio Garg MD) Palliative care encounter ?Z51.5 - Encounter for palliative care (ICD-10) Malnutrition ?E46 - Unspecified protein-calorie malnutrition (ICD-10) Referred by adult protective services Presbyesophagus ?K22.89 - Other specified disease of esophagus (ICD-10) Urinary tract infection ?N39.0 - Urinary tract infection, site not specified (ICD-10) History of cough terminal operator current use of non-steroidal anti-inflammatories (NSAID) ?Z79.1 - terminal operator (current) use of non-steroidal anti-inflammatories (NSAID) (ICD-10) Primary osteoarthritis involving multiple joints ?M15.9 - Polyosteoarthritis, unspecified (ICD-10) Hyperlipidemia ?E78.5 - Hyperlipidemia, unspecified (ICD-10) History of diverticulitis (01/31/13) ?Z87.19 - Personal history of other diseases of the digestive system (ICD-10) Frailty syndrome in geriatric patient ?R54 - Age-related physical debility (ICD-10) Fracture of acromion of scapula ?S42.123A - Displaced fracture of acromial process, unspecified shoulder, initial encounter for closed fracture (ICD-10) 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) ?G30.9 - Alzheimer's disease, unspecified (ICD-10) ?F02.80 - Dementia in other diseases classified elsewhere, unspecified severity, without behavioral disturbance, psychotic disturbance, mood disturbance, and anxiety (ICD-10) Benign essential hypertension ?I10 - Essential (primary) hypertension (ICD-10) Surgical History History of bilateral cataract extraction (~03/2021) ?Z98.41 - Cataract extraction status, right eye (ICD-10) ?Z98.42 - Cataract extraction status, left eye (ICD-10) History of open reduction and internal fixation (ORIF) procedure (~2020) ?Z98.890 - Other specified postprocedural states (ICD-10) History of reverse total replacement of right shoulder joint (06/16/13) ?Z98.890 - Other specified postprocedural states (ICD-10) History of total left knee replacement (Unknown) ?Z96.652 - Presence of left artificial knee joint (ICD-10) Status post total right knee replacement (~2018) ?Z96.651 - Presence of right artificial knee joint (ICD-10) History of right knee surgery ?Z98.890 - Other specified postprocedural states (ICD-10) History of open reduction and internal fixation (ORIF) procedure (11/2019) ?Z98.890 - Other specified postprocedural states (ICD-10) History of open reduction and internal fixation (ORIF) procedure (2011) ?Z98.890 - Other specified postprocedural states (ICD-10) History of hysterectomy (1973) ?Z90.710 - Acquired absence of both cervix and uterus (ICD-10) History of bladder repair surgery ?Z98.890 - Other specified postprocedural states (ICD-10) History of appendectomy (1979) ?Z90.49 - Acquired absence of other specified parts of digestive tract (ICD- 10) Social History (Updated 11/19/23 @ 18:24 by Hector Gutierrez MD) Narrative: Lives with her adult son. Code status is DNR DNI. January 2023 referred to hospice. She does not smoke. She does not drink alcohol What is your current living situation?: unable to answer Problems where you live: unable to answer Problems where you live details: NA In the past 12 months, utilities in danger of being shut off: unable to answer In past 12 months, lack of transportation kept you from medical appts, meetings, work, or getting things needed for daily living: unable to answer In the past 12 mos, have been you worried that your food would run out before you had money to buy more?: unable to answer In the past 12 mos, the food you bought just didn't last and you didn't have money to buy more?: unable to answer Highest level of school completed/degree received: Master's degree Smoking Status: Never smoker Do you use any of these nicotine containing products: None How often do you have a drink containing alcohol: never How often do you have six or more drinks on one occasion: Never AUDIT-C Alcohol total score: 0 Non-prescribed substance use: denies use Caffeine: Yes How often does anyone, including family, friends and others, physically hurt you : unable to answer How often does anyone, including family, friends and others, insult or talk down to you: unable to answer How often does anyone, including family, friends and others, threaten you with harm: unable to answer How often does anyone, including family, friends and others, scream or curse at you: unable to answer service: No Meds Home Medications and Allergies Home Medications ?Medication ?Instructions ?Recorded ?Confirmed ?Type simvastatin 20 mg tablet 20 mg PO HS 11/29/21 11/20/23 History cholecalciferol (vitamin D3) 25 25 mcg PO DAILY 04/10/22 11/20/23 History mcg (1,000 unit) capsule (Vitamin D3) pantoprazole 20 mg tablet,delayed 20 mg PO DAILY 05/14/23 11/20/23 History release (Protonix) Allergies Allergy/AdvReac Type Severity Reaction Status Date / Time azithromycin Allergy Unknown Verified 02/04/23 00:05 Cephalosporins Allergy Unknown Verified 02/04/23 00:05 lisinopril Allergy Unknown Verified 02/04/23 00:05 oxycodone Allergy Unknown Verified 02/04/23 00:05 Penicillins Allergy Unknown Verified 02/04/23 00:05 environmental Allergy Unknown Uncoded 11/20/22 11:08 Exam Const: Vital Signs, click to edit/add: Vital Signs - 24 hr 11/20/23 15:00 11/20/23 19:43 11/20/23 22:48 Temperature 97 F L Pulse Rate Pulse Rate [Right Pulse Oximeter] 49 L 50 L 50 L Respiratory Rate 16 16 16 Blood Pressure [Ri ght Arm] 114/58 L Pulse Oximetry 94 Oxygen Delivery Me thod Room Air 11/20/23 23:30 11/21/23 06:00 11/21/23 09:26 Temperature 97.2 F L Pulse Rate Pulse Rate [Right Pulse Oximeter] 79 Respiratory Rate 16 16 16 Blood Pressure [Ri ght Arm] Pulse Oximetry 90 Oxygen Delivery Me thod Room Air 11/21/23 10:00 11/21/23 11:25 Temperature Pulse Rate 59 L Pulse Rate [Right Pulse Oximeter] 79 Respiratory Rate 16 Blood Pressure [Ri ght Arm] Pulse Oximetry Oxygen Delivery Me thod Common normals: no apparent distress Nutritional appearance: thin Resp: Common normals: normal respiratory effort Extremity: Other: Needs assistance of 2 to reposition in hospital bed. Skin: General skin exam: ecchymosis (Bearing degrees of healing to bilateral upper and lower extremities) and erythema (Blanchable to coccyx and sacrum) Trauma: abrasion (Left lower extremity with 2 areas of abrasion, surrounding ecchymosis) and other (Skin tear to bilateral upper extremities covered with Tegaderm) Assessment and Plan Assessment and plan (1) Multiple wounds: Problem comment: Multiple bruises and skin tears, primarily forearms and shins, sacrum. No photos without consent Shower today, wound cares, mepilex, barrier cream - 11/21/2023: software applications specialist assessment obtain, awaiting their recommendations. Status: Acute Plan Patient assess today in her hospital bed in acute care. She is found to have a skin tear on bilateral upper arms. The skin tears are currently covered with Tegaderm. Unclear how long this Tegaderm has been in place. Bilateral lower extremities are covered with Telfa and Kerlix. Telfa in Kerlix removed during my assessment. The right lower extremity is free of any drainage and does not need to be covered with any type of dressing. The left lower extremity has to partial-thickness skin tears and the anterior side of the carrillo. This will continue to need a dressing in place. Patient is found to have boggy heels, these present today with blanchable erythema. This is not yet even a stage I pressure ulcer, however patient is quite at risk for developing pressure ulcers. Currently these are covered with heel Mepilex dressings. This can be continued. However the heels do need frequent offloading. They carrillo never be resting on the mattress. All skin should be monitored quite closely for breakdown. Bilateral upper arm dressings: Removed Tegaderm Cleansed with wound cleanser Apply Mepilex Change 2 times per week Right lower extremity: Leave area open to air Good moisturization with lotion Left lower extremity: Cleanse both areas with wound cleanser Cover with Mepilex Change to times per week Coccyx/Sacrum: Blanchable erythema. Offload Zinc barrier cream as needed due to incontinence. Please refrain from applying Tegaderm to patient's thin skin. This can continue to cause trauma upon removal. Also refrain from applying Telfa to draining wounds, there is no absorption to this dressing and the drainage will largely sit against the skin. Causing maceration. Patient is on hospice. Goal of wound care is simplicity and for comfort. Wound center will not need to continue to follow this patient. If you have any other concerns are questions please contact us in the future. Dictation done with voice recognition, and as a result, wrong word or [id number] substitutions may have occurred. There may be errors in the script that have gone undetected. Please consider this when interpreting information found in this chart.
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
--- NOTE | 2023-11-21 15:42 | PC.SOCIAL ---
Addendum entered and electronically signed by DOUG Staley 11/21/23 16:12: Discharge planning: print binding and finishing worker did send a copy of the MA application to Kar at [facility]. print binding and finishing worker also found out from the guardian [facility] Social work to follow-up as needed. Original Note: Discharge planning: print binding and finishing worker confirmed with PT/OT that pt will need placement in a terminal superintendent care facility with 24 hour assistance. print binding and finishing worker notified pt's guardian of this update. Pt's guardian will be filling out an MA application today to send to [facility] to be expedited for processing. Pt has an Alternative Care Program Office Support Associate through [facility] named Kina Bernal #[phone] whom will assist with the processing of the MA application through [facility]; however, she is out on vacation all of next week, so her yard supervisor, Lilli Lima, will be checking in on the processing of the application. Pt's guardian asked that this worker start looking for LTC placement in [place] and then branch out to other the [facility] from there. There was a court hearing today and pt's Emergency Guardianship will be extended to 11/28/[address] hearing at that time. The guardian shared with this worker that during the court hearing the sons were told that they could visit their mother at the hospital. print binding and finishing worker informed psych social worker's yard supervisor of this update whom then informed the Nurse Transit Planning Director to make arrangements for when the sons come to visit. The two sons, Sterling and Christiano, will only be allowed to visit during visiting hours and one of the hospital security guards will need to sit outside the pt's door for safety/security purposes. print binding and finishing worker sent a referral to [facility] and [facility] [place] [facility] for [place]; however, it may be a challenge to find a facility that will take the pt with a pending MA application and no other payment source. [facility] is reviewing the referral and this worker heard back from Kar at [facility] #[phone], whom requested a copy of the pt's MA application and three months worth of bank statements before they could continue processing the application for [facility] in [place] and [facility] in [place]. print binding and finishing worker reached out to pt's guardian, Anilbrook, for these documents. Christiano was able to send this worker a copy of the MA application she filled out earlier today; however, she will still need to get three months worth of bank statements. Social work to follow-up as needed.
--- NOTE | 2023-11-21 16:07 | PC.NURSE ---
Pt son came to visit from [phone]. guard range Chinmay was remained outside of pt room for duration of visit.
--- NOTE | 2023-11-21 19:09 | PC.NURSE ---
Pt appeared to be resting throughout shift. Turned and repositioned every 2 hours. Wound dressings were changed, now there is mepliex on her right and left forearms along with her left lower leg. All clean, dry and intact. Pt unable to answer questions. Changed my gown and washed arms. Pt was up to the chair for a little less than an hour, moved via 2a ez stand, tolerated fairly. Multiple attempts were made to give pt medications, though we were unsuccessful, MD aware. Pt has had very few bites of food throughout shift, despite multiple attempts. Pt does not have an IV. Vitally stable throughout shift. ?
--- NOTE | 2023-11-21 22:44 | PC.NURSE ---
End of shift [id number]: Pt was resting in bed sleeping during shift. Pt was arousable to name. Pt was unable to respond to adjusto writer operator when asking questions. Pt would make different sounds that indicated 'yes' and 'no.' Pt refused care throughout the shift and guarded her body as adjusto writer operator attempted to assess and grab VS. Wool Shearing Supervisor was able to gather VS while feeding pudding, Pt began to make mumbling sounds that indicated nonverbal cues of discomfort with the BP cuff. Wound dressings CDI. Multiple attempts were made to give pt medications, Pt spit out. Pt had 5 bites of pudding during shift. Call light within reach.
[2023-11-22] VITALS (8 sets, daily range): BP systolic 147; BP diastolic 75; PULSE 48–53; RESP 14–16; TEMP 36.4; O2SAT 95–96
--- NOTE | 2023-11-22 06:45 | PC.NURSE ---
END OF SHIFT NOTE: PT WITH ALZHEIMER'S DISEASE. RESTFUL NIGHT VITALS.?VITALLY STABLE ON RA. REPOSITIONED FOR COMFORT AND OFFLOADING WT. PT WITH GARBLED SPEECH; WILL ANSWER OCCASIONALLY WITH ?YES AND NO?. BED ALARM ON AND CALL LIGHT WITHIN PT?S REACH.
[2023-11-22] MEDS: OMEPRAZOLE 20 MG CAPSULE DR PO (08:14)
[2023-11-22] MEDS: AMLODIPINE 5 MG TABLET PO (08:15)
[2023-11-22] MEDS: ACETAMINOPHEN 650 MG TABLET ER 1300 MG PO ×2 (08:15→20:39)
[2023-11-22] MEDS: DONEPEZIL 10 MG TABLET PO (09:00)
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
--- NOTE | 2023-11-22 18:53 | PC.NURSE ---
Nursing Care Hours: [phone] Pt this shift responsive to name. When life insurance underwriter said good morning pt responded shes here with a smile. Began humming tunes and giving a pleasant sigh. EZ stand was not a safe transfer option d/t pt not active in standing. Ceiling lift used rest of shift, pt tolerated well. Mepilex applied to coccyx for a reddened area, no open sores. Bandages on extremities CDI. Scattered scabs over extremities remain intact. Ate majority of meals without difficulty. Incontinent void x2. Took majority of pills in AM crushed in pudding. Capsules pt would spit out. Digoxin and Metoprolol held for low HR. Only one incident of pt moaning in distress when talking about getting ready for dinner. Origination Specialist asked if pt would like ice cream and pt looked up pleased. Ensure milkshake given. Right eye discharge causing eyelids to crust shut. Warm compress applied and eye cleaned. Sclera not red. Pt son Gui here in morning for a short period with security guard dispatcher outside door. Christiano came in the afternoon and security guard dispatcher outside door. Christiano stated he feels like pt is very depressed. Christiano says that pt seems very tired and not responsive like she normally is. During transfer from bed to chair, Christiano took a couple of photos on his personal cell phone. Reported incident to charge nurse and after communicating with nurse talent acquisition relationship manager and house-sup, the charge nurse, life insurance underwriter, and clerical warehouse worker entered room to ask about the photos. Christiano admitted he took them and apologized for any wrongdoing. Origination Specialist witnessed Christiano delete photos that included staff members. Other photos Christiano took were of pt bandages and the communication board with staff names. Sterling came back in evening to assist with feeding pt dinner. relationship counselor outside of door at all times.
[2023-11-22] MEDS: SIMVASTATIN 20 MG TABLET PO (20:40)
[2023-11-22] MEDS: DOCUSATE SODIUM 100 MG CAPSULE PO (20:42)
--- NOTE | 2023-11-22 22:14 | PC.NURSE ---
End of shift [id number]: Pt this shift responsive to name. Pt would respond with humming noises. Ceiling lift used to put Pt back into bed. Bandages on extremities CDI. Scattered scabs over extremities remain intact. Pt took medications crushed in pudding. Tolerated well. Capsules Pt spit half out. Metoprolol held for low HR. Pt showed no nonverbal cues of pain/distress. Slight drainage to the R eye. Pt son Gui here upon shift - 1954. Ruddy, pci security consultant outside door. Sterling assisted with helping Pt eat. Pt appears resting comfortably with call light in reach.
[2023-11-23] VITALS (7 sets, daily range): BP systolic 124–171; BP diastolic 62–80; PULSE 51–65; RESP 14–18; TEMP 36.4–36.7; O2SAT 92–95
--- NOTE | 2023-11-23 06:24 | PC.NURSE ---
Shift note ([id number]): Patient cooperative with cares. Remained in bed. Turned and repositioned q 2hrs. Made eye contact when spoken to. No words spoken. Responded to data analyst report writer by humming.??
[2023-11-23] MEDS: OMEPRAZOLE 20 MG CAPSULE DR PO (08:16)
[2023-11-23] MEDS: DIGOXIN 125 MCG TABLET PO (08:17)
[2023-11-23] MEDS: AMLODIPINE 5 MG TABLET PO (08:17)
[2023-11-23] MEDS: ACETAMINOPHEN 650 MG TABLET ER 1300 MG PO (08:17)
[2023-11-23] MEDS: METOPROLOL TARTRATE 25 MG TABLET 12.5 MG PO (08:18)
[2023-11-23] MEDS: DONEPEZIL 10 MG TABLET PO (08:18)
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
--- NOTE | 2023-11-23 15:59 | PC.NURSE ---
Visit from son-- Son Gui was at bedside from roughly 0500-4454 and assisted with feeding of patient per his insistence. Security was stationed outside of room for the duration of visit.
[2023-11-23] MEDS: CALCIUM CARBONATE 500 MG CHEW PO (18:28)
--- NOTE | 2023-11-23 19:55 | PC.NURSE ---
End of shift- Pt has been pleasant, but drowsy today. Occasional yes/no answers noted, otherwise only humming/ mumbling noted. VSS and pt is afebrile. SPO2>90% on RA. Pt appears to be resting comfortably most of the day. LS CTA. BS+ x4 and pt had 1x small hard pebble of stool. She ate approximately 75% of her breakfast with moderate assistance today. She has only eaten a small amount the rest of the day. She was up to the chair with ceiling lift twice today and tolerated it well. Incontinent of urine x2. She took her medications crushed in applesauce today, but was noted to chew up and spit out the capsules today. Son, Sterling, has been at bedside again since roughly 1800. He appeared upset by the choice of meal that had been ordered for the patient. He repeatedly expressed that patient has esophagitis and asked for patient to have a Tums. Tums was given, but patient spit it out. He stated several times that now she is unhappy. Security was present in hallway for duration of son's visist. Pt appeared to be sleeping. Report to BECK Warner.
--- NOTE | 2023-11-23 23:21 | PC.NURSE ---
End of shift [id number]: Pt slept for the entirety of shift. Pt was arousable to shake. Pt has slight drainage to the R eye. Upset Welding Machine Operator wiped eyes with warm wash cloth and Pt would not open eyes. Only humming/ mumbling noted. Medications not given, Pt refused to eat/drink when encouraged by justowriter operator. Son, Sterling, was at bedside upon beginning of shift - 1949. Security, Fox present and monitoring in hallway. Gui stated being upset by the choice of meal that had been ordered for the patient. Pt appears resting with call light in reach. Resps: 16.
[2023-11-24] VITALS (9 sets, daily range): BP systolic 133–142; BP diastolic 61; PULSE 48–56; RESP 14–16; TEMP 35.9–36.2; O2SAT 95–96
--- NOTE | 2023-11-24 06:18 | PC.NURSE ---
END OF SHIFT NOTE: PT SLEPT MAJORITY OF SHIFT. WHEN ASKED QUESTIONS PT WILL ACKNOWLEDGE WITH POSITIVE NOISES [facility]. COOPERATIVE WITH ALL CARES. CHANGES ONE LARGE VOID. REPOSITIONED FOR COMFORT AND OFFLOADING. BEDSCALE WT 88#.
[2023-11-24] MEDS: ACETAMINOPHEN 650 MG TABLET ER 1300 MG PO ×2 (08:12→21:02)
[2023-11-24] MEDS: OMEPRAZOLE 20 MG CAPSULE DR PO (08:15)
[2023-11-24] MEDS: DOCUSATE SODIUM 100 MG CAPSULE PO (08:17)
[2023-11-24] MEDS: DONEPEZIL 10 MG TABLET PO (08:17)
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
--- NOTE | 2023-11-24 11:41 | PC.NURSE ---
Pt 0900 Metoprolol, amlodipine and digoxin held. Hr at 0755 was 50 bpm, retake at 1140 was 48 bpm. MD aware, medications held.
--- NOTE | 2023-11-24 15:00 | PC.NURSE ---
PATIENT'S HEART RATE THIS AM 50'S. MD UPDATED AND MEDS HELD PER EMAR FOR HEART RATE. PATIENT DROWSY TODAY. OPENED EYES WHEN TALKED TO, BUT QUICK TO CLOSE THEM AND HANG HEAD DOWN. UP WITH CEILING LIFT TO RECLINER. PATIENT ATE CUP OF PUDDING THIS AM WITH HER MEDS NAD BITES OF HER BREAKFAST. PATIENT WOULD NOT EAT LUNCH AND REFUSED ATTEMPTS TO HAVE PATIENT DRINK FLUIDS. NO WET ATTENDS NOTED AND MD UPDATED. AFTER RETURNING PATIENT TO BED AND REPOSITIONING, PATIENT OPENED EYES AND WAS MORE ALERT. PATIENT WILLING TO DRINK JUICE. STAFF WAS THEN ABLE TO FEED PATIENT A KEMPS PLUS DRINK, HALF OF AN ENSURE SHAKE, A CAN OF CHICKEN NOODLE SOUP. AND A BANANA. PATIENT TOLERATED WELL.
--- NOTE | 2023-11-24 15:01 | PC.SOCIAL ---
Discharge planning: Pt's Guardian, Christiano, is working on getting bank statements for the pt's Medical Assistance application. oyster worker spoke to pt's APS worker through [facility], Maria Ines Cotto, who stated that there is court again on Friday the at 9:00am for an Evidentiary Hearing with the grades 1 6 tutor. oyster worker checked in with Lucie at [facility] on the status of pt's referral to them and Lucie asked for nursing/MD notes from this past week/weekend. oyster worker sent the notes to Lucie via secure email this afternoon. Social work to follow-up as needed.
[2023-11-24] MEDS: METOPROLOL TARTRATE 25 MG TABLET 12.5 MG PO (21:02)
[2023-11-24] MEDS: SIMVASTATIN 20 MG TABLET PO (21:03)
--- NOTE | 2023-11-24 22:08 | PC.NURSE ---
Pt A & O to self. Sleepy during shift. Used ceiling lift to transfer pt from bed to chair for dinner. Pt needed assistance with feeding. Ate approx. 25% of dinner. Multiple bruises and scabs over upper and lower extremities. Incontinent of B/B.
--- NOTE | 2023-11-24 23:04 | PC.NURSE ---
2 of the pts children in to visit this evening. security was present during visiting hours, pts dtr left around 1930 and pts son left at 1999.
[2023-11-25 05:46] VITALS: RESP 16
--- NOTE | 2023-11-25 06:29 | PC.NURSE ---
SHIFT NOTE -: Pt sleepy this shift, pleasant, humming when repositioned but nonverbal otherwise. Incontinent of urine x1, abdiel care provided. Appears comfortable. T&R Q2H overnight.
[2023-11-25] MEDS: DOCUSATE SODIUM 100 MG CAPSULE PO ×2 (09:22→20:40)
[2023-11-25] MEDS: AMLODIPINE 5 MG TABLET PO (09:22)
[2023-11-25] MEDS: DONEPEZIL 10 MG TABLET PO (09:22)
[2023-11-25] MEDS: ACETAMINOPHEN 650 MG TABLET ER 1300 MG PO ×2 (09:22→20:39)
[2023-11-25 09:23] VITALS: PULSE 51
[2023-11-25 09:24] VITALS: BP 151/79; PULSE 51; RESP 16; TEMP 36.2; O2SAT 98
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
--- NOTE | 2023-11-25 13:51 | PC.SOCIAL ---
Addendum entered and electronically signed by DOUG Staley 11/25/23 15:08: Discharge planning: funeral workers secure emailed a copy of pt's BCBS card to pt's guardian, Christiano, per her request at [email or web address]. Social work to follow-up as needed. Original Note: Discharge planning: funeral workers heard back from Lucie at [facility] this morning who stated that they cannot accept the pt at their facility due to mainly because of the family dynamics with the sons and not being able to provide proper supervision, due to staffing, if the sons were to come visit. funeral workers also notified pt's guardian, Christiano, of this update. Christiano shared that she is still working on getting bank statements and stated that she gave the sons a deadline of 4:30pm today for getting the information to her or at least giving her the name of the bank. Maria Ines with [facility] is checking on the status of the MA application today. Per Maria Ines Bailey's request, this worker sent her nursing notes and provider progress notes for her investigation. funeral workers sent them in a secure email to [email or web address]. Social work to follow-up as needed.
[2023-11-25 15:22] VITALS: BP 132/62; PULSE 59; RESP 16; TEMP 36.3; O2SAT 98
--- NOTE | 2023-11-25 18:37 | PC.NURSE ---
: The patient is noted to be mainly nonverbal, moans and will say a few words at times. Ate 100% of breakfast and 2 high calorie ensures were drank. Q2 reposition and Ax2 w/ ceiling lift up to the chair. L carrillo wounds dressings were changed and cleansed today as well as her sacrum. The patient seemed to tolerate this well. Pills crushed with pudding. This Am initially when I tried to help her eat she threw the spoon onto the floor and spit out some food. After I let the patient be she was found to be eating. Call light within reach and alarms are in place. The patients soon was here late this afternoon with security present. Then he came back this evening and security is present. Clau SOLARES BSN
[2023-11-25 19:30] VITALS: BP 132/55; PULSE 64; RESP 16; TEMP 36.6; O2SAT 95
[2023-11-25] MEDS: SIMVASTATIN 20 MG TABLET PO (20:39)
[2023-11-25] MEDS: METOPROLOL TARTRATE 25 MG TABLET 6.25 MG PO (20:39)
[2023-11-25 21:39] VITALS: RESP 16
[2023-11-26 05:04] VITALS: RESP 16
--- NOTE | 2023-11-26 05:07 | PC.NURSE ---
[id number] Pt up in chair at beginning of shift, sleeping. meds administered with pudding, crushed whatever pills are able to be crushed and pt abl swallow while sitting up with no problems. back to bed using ceiling lift, tolerated well. repositioned q2h throughout shift.
[2023-11-26] MEDS: AMLODIPINE 5 MG TABLET PO (09:03)
[2023-11-26] MEDS: DOCUSATE SODIUM 100 MG CAPSULE PO ×2 (09:03→21:30)
[2023-11-26] MEDS: DONEPEZIL 10 MG TABLET PO (09:04)
[2023-11-26] MEDS: ACETAMINOPHEN 650 MG TABLET ER 1300 MG PO ×2 (09:04→21:30)
[2023-11-26] MEDS: METOPROLOL TARTRATE 25 MG TABLET 6.25 MG PO (09:04)
--- NOTE | 2023-11-26 09:29 | PC.NURSE ---
Nursing leadership notified of sonChristiano, taking pictures of patient care which is prohibited, son informed and did stop. Son, Gui, has been reported to curse at staff and act in hostile ways towards staff related to unhappiness with diet selection or nurse staff correction in his behaviors. Gui also asked a security escort over the weekend when a staff member was off shift which caused concern amongst staff. We notified the guardian Christiano Spain today 11/26/23 that the sons would no longer be able to visit based on these violations of our code of conduct.
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
--- NOTE | 2023-11-26 13:08 | PC.SOCIAL ---
Social work: This healthcare social worker, Med/Surg Core Maker, Michael Perry and Patient Advocate, Magda Rubi, spoke with pt's Emergency Guardian, Christiano Judit [phone] to clarify communication of pt information and questions to pt's children. Christiano stated that she will be the only contact going forward to speak with staff regarding pt's condition and cares. If the children call staff for anything or any information, they should be directed by staff to call the guardian. Christiano will communicate this to the family.
--- NOTE | 2023-11-26 13:36 | PC.SOCIAL ---
Addendum entered and electronically signed by DOUG Staley 11/26/23 16:11: Discharge planning: [facility] in [place] is reviewing the pt's referral and had asked for more updated notes to review. Social work to follow-up as needed. Addendum entered and electronically signed by DOUG Staley 11/26/23 15:40: Discharge planning: latex foam worker sent updated to notes to Kar Nickerson at [facility] per his request this afternoon via fax. Social work to follow-up as needed. Original Note: Discharge planning: latex foam worker received the past three months of bank statements for the pt from the guardian and sent them to Kar at [facility], who will send them out for review to [facility] in [place] and [facility] in [place]. Kar did state that if she were to be accepted at one of the facilities they would not be able to admit her until there is a permanent guardian in place. An[place]brook Spain is just considered an emergency guardian at this time and has not been appointed as a permanent legal guardian by the courts yet. latex foam worker will continue to look for placement at facilities that may accept MA pending. Social work to follow-up as needed.
[2023-11-26 15:00] VITALS: PULSE 50; RESP 16
--- NOTE | 2023-11-26 15:05 | PC.NURSE ---
The patient is drowsy this shift... attempts were made to feed the patient breakfast and lunch and the patient turned her head and refused. Ax2 w/ ceiling lift. Q2 reposition. Mepilexs on wounds, CDI. Incontinent of urine 2x this shift. Call light within reach. Clau SOLARES BSN
[2023-11-26 15:24] VITALS: BP 136/58; PULSE 50; RESP 16; TEMP 36.6; O2SAT 99
[2023-11-26 20:31] VITALS: BP 153/63; PULSE 51; RESP 16; TEMP 36.2; O2SAT 95
[2023-11-26] MEDS: SIMVASTATIN 20 MG TABLET PO (21:30)
[2023-11-27 05:54] VITALS: RESP 17
[2023-11-27 07:00] VITALS: PULSE 56; RESP 18
[2023-11-27 07:54] VITALS: BP 159/61; PULSE 56; RESP 18; TEMP 36.1; O2SAT 97
[2023-11-27 09:09] VITALS: BMI 13.8
[2023-11-27] MEDS: OMEPRAZOLE 20 MG CAPSULE DR PO (09:18)
--- NOTE | 2023-11-27 09:36 | PC.SOCIAL ---
Addendum entered and electronically signed by DOUG Staley 11/28/23 13:07: Correction to below note: Lelo at [facility] may have a LTC bed available, so pt's referral was sent to her for review yesterday. Social work to follow-up as needed. Addendum entered and electronically signed by DOUG Staley 11/27/23 15:55: Discharge planning: recreation worker spoke to Lelo at [facility] and she said she may have a female TCU bed available and that they would review it with a MA application pending, as well. recreation worker faxed the referral to [facility] at fax #[phone]. Social work to follow-up as needed. Addendum entered and electronically signed by DOUG Staley 11/27/23 15:30: Discharge planning: recreation worker heard back from [facility] at #[phone] and they do not have any female LTC beds at this time. Social work to follow-up as needed. Addendum entered and electronically signed by ETTA Mckenzie Student Weaver Dobby Loom 11/27/23 15:01: Discharge Planning: [facility] in [place] no longer has a LTC bed. recreation worker contacted the following facilities regarding placement. 10) [facility]: left voicemail, 11) [facility]: left voicemail, 12) [facility]: left voicemail, 13) [facility]: no LTC beds available, 14) [facility]: left voicemail, 15) [facility]: left voicemail, 16) [facility]: left voicemail, 17) [facility] facilities: secure emailed referral to [email or web address] 18) [facility]: bed available, faxed referral to [phone], phone number: [phone] recreation worker to follow up as needed. Addendum entered and electronically signed by DOUG Staley 11/27/23 11:19: Addendum to previous note: 9) [facility] in [place]: Spoke to Griselda who said they have one female LTC bed available and they do review referrals that have MA pending applications. Faxed a referral to Griselda at [facility] in [place] for review at fax #[phone]. Social work to follow-up as needed. Original Note: Discharge planning: All of the following facilities were contacted today for placement options with the following listed results: 1) [facility] in [place]: Spoke to Jennifer at [facility] via email and they do not have any female LTC beds available right now, but they do consider MA pending applications. 2) [facility]: Left a message with Angela in Admissions, phone number #[phone], asking about female LTC bed availability and if they can accept a MA pending application. 3) [facility]: Not able to leave a message, voicemail box is full, phone #[phone]. 4) [facility] in [place]: Emailed Hue Reynaga, consultant nurse, inquiring about female LTC bed availability and if they take MA pending applications. Also left a message with Vira in Admissions at [place]. 5) [facility] in [place]: Emailed Umm in Admissions inquiring about female LTC bed availability and if they take MA pending applications. 6) [facility]: Left a message with Tamera in Admissions inquiring about female LTC bed availability and if they accept MA pending applications. 7) [facility]: Left a message with Ilsa in Admissions inquiring about female LTC bed availability and if they accept MA pending applications. 8) [facility] in [place]: Left a message with Susie in Admissions, inquiring about female LTC bed availability and if they accept MA pending applications. Social work to follow-up as needed.
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
--- NOTE | 2023-11-27 11:18 | PC.SOCIAL ---
Social work: [facility] worker, Maria Ines Bailey (phone [phone]) requested nursing notes be sent to her on this patient, who has an open [facility] case with [facility]. Secure emailed requested RN notes to Maria Ines at [email or web address]
--- NOTE | 2023-11-27 11:41 | REH.OT ---
I offered the patient something to drink. She opened her eyes and opened her mouth thinking she might take a drink. When to drink was up to her she bit down on the cup lid very hard and aggressive. She did not take a drink.
--- NOTE | 2023-11-27 14:31 | PC.NURSE ---
End of shift Note: Patient has slept most of this shift. We did use the ceiling and moved her to the chair for breakfast as she was awake just briefly and answered yes to wanting to eat. But her breakfast came and were not able to get her to wake up long enough to eat breakfast. Did crush her medication too and tried for about 20 minutes to see if she would wake long enough to taker her medication and she did not. Also noted that she has not voided at all this shift but she also has not taken anything in. She was up in the recliner for about 2 hours and then used the ceiling lift and place her back in her. Will continue to monitor until next shift arrives.
[2023-11-27 17:16] VITALS: RESP 18
[2023-11-27 19:26] VITALS: BP 147/58; PULSE 60; RESP 20; TEMP 37.3; O2SAT 93
[2023-11-27 20:41] VITALS: PULSE 52
[2023-11-28 05:07] VITALS: RESP 20
--- NOTE | 2023-11-28 07:32 | PC.NURSE ---
Shift note ([id number]): Patient cooperative with HS cares, turning and repositioning. Remained in bed this shift. Pt refused fluids and HS meds. Pushed scientific technical writer away and covered her mouth when attempting to give medications.?No signs of pain or discomfort.
[2023-11-28 09:55] VITALS: PULSE 62; RESP 16
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
--- NOTE | 2023-11-28 14:26 | PC.SOCIAL ---
Addendum entered and electronically signed by DOUG Staley 11/28/23 14:38: Discharge planning: gospel worker received a call from Khadijah at [facility] in [place] and they too are declining the pt at this time due to no payor source. Social work to follow-up as needed. Original Note: Discharge planning: gospel worker received a call from Bryanna at [facility] in [place], [place] whom stated that after their DON reviewed the referral they are declining the referral. Social work to follow-up as needed.
[2023-11-28 15:00] VITALS: PULSE 62; RESP 16
--- NOTE | 2023-11-28 15:17 | PC.NURSE ---
End of Shift: Patient cooperative with cares this shift. Turned and repositioned Q2 hours this shift. Refused morning medications. Patient did respond yes and no to me this shift. Patient did have 1 wet brief, and small BM this shift. Ceiling lift to chair. Patient ate a small portion of her breakfast and lunch. Patient has appeared comfortable throughout the day.
--- NOTE | 2023-11-28 15:53 | PC.SOCIAL ---
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 1) [facility] in [place]: Spoke to Jennifer at [facility] via email and they do not have any female LTC beds available right now, but they do consider MA pending applications. 2) [facility]: left voicemail, 3) [facility]: declined pt due to no payer source, phone #[phone]. 4) [facility] in [place]: Emailed Hue Reynaga, chipper machine operator, inquiring about female LTC bed availability and if they take MA pending applications. Also left a message with Vira in Admissions at [place]. 5) [facility] in [place]: Emailed Umm in Admissions inquiring about female LTC bed availability and if they take MA pending applications. 6) [facility]: Left a message with Tamera in Admissions inquiring about female LTC bed availability and if they accept MA pending applications. 7) [facility]: Left a message with Ilsa in Admissions inquiring about female LTC bed availability and if they accept MA pending applications. 8) [facility] in [place]: Left a message with Susie in Admissions, inquiring about female LTC bed availability and if they accept MA pending applications. 9) [facility] in [place]: no LTC beds available, 10) [facility]: left voicemail, 11) [facility]: left voicemail, 12) [facility]: no LTC beds, 13) [facility]: no LTC beds available, 14) [facility]: left voicemail, 15) [facility]: left voicemail, 16) [facility] [place]: left voicemail, 17) [facility]: secure emailed referral to [email or web address] 18) [facility]: declining the pt, faxed referral to [phone], phone number: [phone] 19) [facility]: no LTC beds available, 20) [facility]: only have private room available and cannot accept MA pending for private room, 21) [facility] [place]: No LTC beds available, 22) [facility]: no LTC beds available, 23) [facility]: [facility], 25) [facility]: admissions to return on Friday, health social work professor will call back, 26) [place] [facility]: referral sent to [place] Kar hampton [email or web address]
[2023-11-28 17:00] VITALS: BP 156/71; PULSE 58; RESP 16; TEMP 36.9; O2SAT 93
[2023-11-28 23:05] VITALS: RESP 14
[2023-11-28 23:06] VITALS: BP 176/61; PULSE 59; RESP 14; TEMP 36.9; O2SAT 96
[2023-11-29] VITALS (8 sets, daily range): BP systolic 110–129; BP diastolic 47–60; PULSE 53–67; RESP 14–16; TEMP 36.8–37; O2SAT 95–96
--- NOTE | 2023-11-29 06:46 | PC.NURSE ---
End of Shift [id number]: Pt arousable to name. Patient asleep for majority of the shift. Son, Sterling, had left the unit around 1999, security by the room at all times monitoring. Turned and repositioned Q2 hours this shift. Refused bedtime medications. Pt attempted to bite and yell ?no? during cares. Pt incontinent of the bladder. Brief changed. Pt had a pudding cup for ad copy writer and one sip of?water.?Pt appears resting comfortably with call light in reach. ?
[2023-11-29] MEDS: ACETAMINOPHEN 650 MG TABLET ER 1300 MG PO ×2 (09:41→20:17)
[2023-11-29] MEDS: SENNOSIDES/DOCUSATE TABLET 1 TAB PO ×2 (09:41→20:17)
[2023-11-29] MEDS: DOCUSATE SODIUM 100 MG CAPSULE PO ×2 (09:41→20:17)
[2023-11-29] MEDS: OMEPRAZOLE 20 MG CAPSULE DR PO (09:43)
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
--- NOTE | 2023-11-29 19:06 | PC.NURSE ---
End of Shift: Patient pleasant and cooperative. Patient vitally stable, lungs clear, BS WNL, NO IV. Patient has verbalized yes and no today, and has been up in chair all day. Patient has 1 small hard stool and urinating. Patient tolerating regular diet with full assistance, patient has good appetite. Patient did swing at RN and SPRAY CEMENTER when changing diaper in bed. All dressing C/D/I.
[2023-11-29] MEDS: METOPROLOL TARTRATE 25 MG TABLET 6.25 MG PO (20:17)
--- NOTE | 2023-11-30 05:30 | PC.NURSE ---
Shift note: Pt continue to to have memory deficit and remain in bed throughout the night, no attempt to self transfer. She was transferred from recliner to bed with ceiling lift at 2200. Turn and reposition Q2H. Brief changed 1x tonight. Vitally stable, pt had adequate sleep.
[2023-11-30 05:34] VITALS: RESP 14
[2023-11-30 08:29] VITALS: BP 140/59; PULSE 59; RESP 16; TEMP 37.2; O2SAT 94
[2023-11-30] MEDS: OMEPRAZOLE 20 MG CAPSULE DR PO (08:49)
[2023-11-30] MEDS: ACETAMINOPHEN 650 MG TABLET ER 1300 MG PO ×2 (08:50→20:28)
[2023-11-30] MEDS: SENNOSIDES/DOCUSATE TABLET 1 TAB PO (08:50)
[2023-11-30] MEDS: METOPROLOL TARTRATE 25 MG TABLET 6.25 MG PO ×2 (08:50→20:33)
[2023-11-30] MEDS: DOCUSATE SODIUM 100 MG CAPSULE PO ×2 (08:51→20:29)
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
[2023-11-30 15:33] VITALS: BP 120/71; PULSE 68; RESP 14; TEMP 37.2; O2SAT 96
--- NOTE | 2023-11-30 18:42 | PC.NURSE ---
End of Shift: Patient pleasant and cooperative today. Patient vitally stable, lungs clear, BS WNL, NO IV. Patient had three meals today, eating the majority of them, patient is a feeder. Patient has been up in chair singing today, also munching on some crackers independently. Patient urinating and had 1 mod formed BM.
[2023-11-30 20:32] VITALS: BP 91/65; PULSE 65; RESP 16; O2SAT 94
[2023-11-30 23:00] VITALS: PULSE 65; RESP 16
[2023-11-30 23:01] VITALS: RESP 16
[2023-12-01 06:00] VITALS: RESP 16
--- NOTE | 2023-12-01 06:28 | PC.NURSE ---
End of shift note [id number]: Pt has advanced Alzheimer?s and unable to identify correct person, place, time or situation upon assessment. She is incontinent of bowel and bladder. Staff have been repositioning Q2H and checking/changing brief when needed Q2H. No IV in place. Pt takes medications crushed in pudding. All Mepilex dressings changed to coccyx, bilateral upper extremities and bilateral lower extremities. Protective dressings in place to bilateral elbows and bilateral heels. Pt has skin tears to bilateral arms and LLE. No open areas observed to coccyx though skin noted to be reddened and raw. Pt noted to have poor po intake despite encouragement. Bed alarm on and call light within reach.
[2023-12-01 07:00] VITALS: PULSE 44; RESP 16
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
[2023-12-01 09:36] VITALS: BP 126/48; PULSE 44; RESP 16; TEMP 36.8; O2SAT 94
--- NOTE | 2023-12-01 12:51 | PC.NURSE ---
Sometimes patient does feed herself and at other times she may allow us to help her eat. She does have a poor appetite
--- NOTE | 2023-12-01 13:51 | PC.NURSE ---
End of Shift Note: Patient has been very sleepy today. Did use the ceiling lift and moved her to the recliner for a couple hours to change her position. Have not been able to get her medications in today safely as she has not been awake enough to swallow her medications. She was then safely ceiling lifted back to bed this afternoon. Will continue to monitor until next shift arrives.
--- NOTE | 2023-12-01 15:52 | PC.SOCIAL ---
Addendum entered and electronically signed by DOUG Staley 12/01/23 16:31: Discharge planning: final assembly worker sent a referral for the pt to Umm in Admissions at [facility] in [place] at [email or web address], as she had stated that other week that she may have a LTC bed for a female coming up, but that if the MA application was pending they would need a $5,000.00 deposit at Admission. final assembly worker asked pt's guardian about pt being able to pay a $5,000.00 deposit and the guardian did not know of any savings that the pt had; however, this worker still sent the referral today. Social work to follow-up as needed. Original Note: Discharge planning: final assembly worker left messages with pt's APS worker Maria Ines Bailey at [facility], her guardian, Christiano, and her [facility] waiver worker, Kina Bernal, today letting them know about all of the facilities that have been contacted for this pt with no luck. Most facilities do not like that there is not a payor source/MA application is still pending or they simply do not have a LTC opening. final assembly worker did hear back from Hue Reynaga at [facility] who shared that they do not accept MA pending applications at all at their facility. final assembly worker has not heard back from any other facilities today. final assembly worker did not hear back from any of the above listed workers today, either. final assembly worker requested an update on the MA application status from the above listed workers, as well. Social work to follow-up as needed.
--- NOTE | 2023-12-01 18:43 | PC.NURSE ---
15-19: The patient was repositioned, changed and given a complete bed bath this shift. Multiple attempts to feed the patient... the patient would turn her head and refused. In the chair. AX2 w/ ceiling lift. Call light within reach. The patients sone was present for a short amount of time this evening with security present. Clau SOLARES BSN
[2023-12-01] MEDS: DOCUSATE SODIUM 100 MG CAPSULE PO (21:14)
[2023-12-01] MEDS: METOPROLOL TARTRATE 25 MG TABLET 6.25 MG PO (21:14)
[2023-12-01] MEDS: SENNOSIDES/DOCUSATE TABLET 1 TAB PO (21:14)
[2023-12-01] MEDS: ACETAMINOPHEN 650 MG TABLET ER 1300 MG PO (21:14)
[2023-12-01 22:40] VITALS: RESP 16
[2023-12-01 22:43] VITALS: RESP 16
[2023-12-02 04:39] VITALS: RESP 16
--- NOTE | 2023-12-02 06:02 | PC.NURSE ---
End of shift [id number]: Cooperative with cares, turn and reposition q2h. Non verbal this shift. Poor oral intake, encouraged fluids but patient declined. Incontinent of urine, small void x 2.
[2023-12-02] MEDS: OMEPRAZOLE 20 MG CAPSULE DR PO (08:08)
[2023-12-02] MEDS: ACETAMINOPHEN 650 MG TABLET ER 1300 MG PO ×2 (09:12→21:05)
[2023-12-02] MEDS: SENNOSIDES/DOCUSATE TABLET 1 TAB PO ×2 (09:12→21:05)
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
[2023-12-02 10:10] VITALS: BP 141/87; PULSE 48; RESP 16; TEMP 36.4; O2SAT 95
--- NOTE | 2023-12-02 14:26 | PC.SOCIAL ---
Discharge planning: Pt was accepted to [facility] in [place] for tomorrow, Saturday 12/02, in a long-term care bed. driver/sales workers informed pt's guardian who will accept the bed. driver/sales workers informed Umm at [facility] that pt's guardian has accepted the bed and pt will admit tomorrow, which is what works best for their facility. Discharge orders were secure emailed to Umm [facility] and the pre-admission screening was completed and sent to Umm via secure email, [id number]. Pt will be transporting via non-emergent EMS and can arrive to the facility as early as noon tomorrow. Non-emergent EMS is set for a 10:45-11:30 pick-up window time. Social work to follow-up as needed.
[2023-12-02 16:56] VITALS: BP 109/61; PULSE 60; RESP 20; TEMP 36.6; O2SAT 96
[2023-12-02 16:58] VITALS: PULSE 60; RESP 20
--- NOTE | 2023-12-02 19:30 | PC.NURSE ---
End of Shift: Patient cooperative with cares this shift. Patient had gotten more verbal toward the end of my shift. Turned and repositioned Q2 hours. Patients son came to visit this afternoon. Encouraged fluid intake and nutritional supplements.
[2023-12-02] MEDS: DOCUSATE SODIUM 100 MG CAPSULE PO (21:05)
[2023-12-02] MEDS: METOPROLOL TARTRATE 25 MG TABLET 6.25 MG PO (21:05)
[2023-12-02 23:00] VITALS: RESP 20
[2023-12-02 23:30] VITALS: RESP 16
[2023-12-03 05:46] VITALS: RESP 18
--- NOTE | 2023-12-03 05:46 | PC.NURSE ---
End of shift report [id number]: Cooperative with cares. Turn and reposition q2h. Mepilex to coccyx and multiple mepilex to UE and LE clean, dry and intact. Patient did answer yes/no questions appropriately.
[2023-12-03] MEDS: OMEPRAZOLE 20 MG CAPSULE DR PO (06:52)
[2023-12-03 07:00] VITALS: PULSE 60; RESP 18
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
[2023-12-03] MEDS: ACETAMINOPHEN 500 MG TABLET 1000 MG PO (08:36)
--- NOTE | 2023-12-03 10:57 | PC.NURSE ---
Patient discharge to [facility] in [place]. Nurse to Nurse report given and EMS is transporting patient. She was ceiling lifted onto the stretcher. She was awake at the time time of transport.
--- NOTE | 2023-12-03 16:03 | PC.SOCIAL ---
Discharge planning: Pt was discharged to [facility] today in [place]. spring salvage worker spoke to pt's guardian, Anilbrook Spain, today over the phone and explained The Important Message from Medicare form and the process for appealing discharge with Medicare. Christiano does not intend to appeal the discharge and is pleased with the discharge plan for this pt. Christiano had previously notified all the family members of pt transferring to [facility] in [place], [place]. spring salvage worker also connected with [facility] and they will reopen the pt for hospice services and will complete an intake with the pt today at [facility] around 1:30pm. All the needed documents were faxed to [facility] intake fax at fax #[phone]. An admit to hospice order was added to pt's discharge summary by the provider on duty. spring salvage worker also explained to pt's guardian that the transportation by non-emergent EMS will most likely be covered by insurance because of pt's condition; however, this social studies teacher did complete a non-emergent EMS transportation form and explained it to the guardian over the phone. If insurance does not pay for the transportation the cost will be around $215.00, as it is $85.00 to pick the pt up and then $5 per mile. [facility] is [place] [address] from the [facility]([phone]= [phone]). Christiano the guardian was verbally okay with signing this form. The form was placed in the pt's chart. Social work to follow-up as needed.
--- NOTE | 2023-12-04 14:52 | PC.SOCIAL ---
Discharge planning: dock worker secure emailed pt's discharge summary and history and physical from her chart to Maria Ines Bailey at [facility] today per Maria Ines's request, email address [email or web address] Social work to follow-up as needed.
== END 2023-12-03 10:59 | DRG 56 ==
LOC: ED 17:28 → MEDSURG 18:13
PROVIDERS: Admitting Provider Family Medicine; Emergency Provider Emergency Medicine Emergency Medical Services; PCP Family Medicine; Visit Provider Family Medicine
DX: G30.9 Alzheimer's disease, unspecified (principal); E43 Unspecified severe protein-calorie malnutrition; Z68.1 Body mass index [BMI] 19.9 or less, adult; T76.91XA Unspecified adult maltreatment, suspected, initial encounter; I48.20 Chronic atrial fibrillation, unspecified; F02.C11 Dementia in other diseases classified elsewhere, severe, with agitation; E88.A Wasting disease (syndrome) due to underlying condition; Z60.8 Other problems related to social environment; Z51.5 Encounter for palliative care; S20.214D Contusion of middle front wall of thorax, subsequent encounter; S00.83XA Contusion of other part of head, initial encounter; S50.12XA Contusion of left forearm, initial encounter; S50.11XA Contusion of right forearm, initial encounter; S20.219A Contusion of unspecified front wall of thorax, initial encounter; S51.811A Laceration without foreign body of right forearm, initial encounter; S41.112A Laceration without foreign body of left upper arm, initial encounter; S41.111A Laceration without foreign body of right upper arm, initial encounter; S81.812A Laceration without foreign body, left lower leg, initial encounter; L98.491 Non-pressure chronic ulcer of skin of other sites limited to breakdown of skin; K22.89 Other specified disease of esophagus; I10 Essential (primary) hypertension; M80.88XD Other osteoporosis with current pathological fracture, vertebra(e), subsequent encounter for fracture with routine healing; M80.851D Other osteoporosis with current pathological fracture, right femur, subsequent encounter for fracture with routine healing; M15.9 Polyosteoarthritis, unspecified; E78.5 Hyperlipidemia, unspecified; Z87.310 Personal history of (healed) osteoporosis fracture
CPT/HCPCS: 87631; 97161; 97165; 99284; A9270; G0378

== ENCOUNTER 2023-12-03 10:49 | Outpatient (CLI) | payer MEDICARE, MEDICAID, SELFPAY ==
--- OUTSIDE RECORDS SUMMARY | 2023-12-07 11:29 | XMS_ITS | Clinical Summary ---
Author Organization [facility] Address [place], [place] [address] Care Team Providers Care Rn Postpartum Name Role Phone Lucille Toney MD Primary [...] Comments Blood Pressure 111/69 03/22/2020 11:51 AM CARDIOPULMONARY PHYSICAL THERAPIST Pulse 77 03/22/2020 11:51 AM CARDIOPULMONARY PHYSICAL THERAPIST Temperature 37.1 ??C (98.8 ??F) 06/30/2018 11:30 AM C DT Respiratory Rate 16 12/22/2019 1:44 PM CARDIOPULMONARY PHYSICAL THERAPIST Oxygen Saturation 98% 03/22/2020 11:51 AM CARDIOPULMONARY PHYSICAL THERAPIST Inhaled Oxygen Concentration - - Weight 58.7 [...] age 65+ Completed , 07/14/2009 Care Teams Rn Postpartum Relationship Specialty Start Date End Date Lucille Toney MD [address] [place] [address] PCP - General Family Practice 12/22/19
--- OUTSIDE RECORDS SUMMARY | 2023-12-07 11:29 | XMS_ITS | Continuity of Care Document ---
Author Organization [facility] Address [address] [address] [place] [address] Phone Care Team Providers Care Director Integrated Name Role Phone Link Wild MCCORMACK Unavailable [...] two tablets by mouth daily - Active ryyzlxciomu-tkyfzfmlx-bew C-Mn 750 mg-600 mg-55 mg-5 mg Tab Take two tablets by mouth daily - Active Procedures Procedure Date Colonoscopy Flex; W/bx 1/mx Level Iv-surg Path Gross/micro 11 Colonoscopy Flex; W/bx 1/mx Advance Directives Directive Yes / No Effective Date File Name No Information Encounters Encounter Description Practice Location Reason(s) For Visit Diagnoses Date Provider Providers Copied on Encounter [facility], [address] [address], [place], [id number], [place] tel:[phone] [facility] No Information 6 Tomas Rome. [address], [facility] [address], [facility] [place], [id number] , [place]. tel: [phone] Referring Provider: Referral Self, USE FOR SELF REFERRALS. [facility], [address] [address], [place], [id number], [place] tel:[phone] [facility] Diverticulosis Of ColonBenign Neoplasm ColonDiarrheaDive rticulosis Of Colon 1 Brando Jones. [address], [facility] [address], [facility] [place], [id number] , [place]. tel: [phone] [facility], [address] [address], [place], [id number], [place] tel:[phone] [facility] Colon Cancer ScreeningDivertic ulosis Of Colon 7 Skylar Baker. [address], [facility] [address], [facility] [place], [id number] , [place]. tel: [phone] Family History Family Member Type Diagnosis Age At Onset No Information Payers Payer name Insurance type Covered republican ID Authoriza tion(s) No Information Social History [...]
== END 2023-12-03 10:50 | disposition home or self-care (01) ==
LOC: AMB 12-07 11:21
PROVIDERS: PCP Family Medicine; Visit Provider Family Medicine
DX: F03.90 Unspecified dementia, unspecified severity, without behavioral disturbance, psychotic disturbance, mood disturbance, and anxiety (principal)
CPT/HCPCS: A0425; A0428